=== PATIENT | female | born 1955 | race Caucasian/White ===

== ENCOUNTER 2018-11-22 08:21 | Inpatient (IN) | payer BC ==
--- NOTE | 2018-11-22 08:53 | EDM.PDOC ---
ED HPI GENERAL MEDICAL PROBLEM - General Chief Complaint: Chest Pain Stated Complaint: CHEST PAIN Time Seen by Provider: 11/22/18 08:40 Source of Information: Reports: Patient, EMS History Limitations: Reports: Physical Impairment (Patient has some expressive aphasia from her recent CVA) - History of Present Illness INITIAL COMMENTS - FREE TEXT/NARRATIVE: 63-year-old female sent in from her custodial with a cough, tachycardia and chest discomfort in the upper chest. According to the patient it worsened "this morning" but she can't put a time on the initiation of symptoms. No fevers or chills, she has right-sided weakness, facial droop and expressive aphasia from a recent CVA. She is in the custodial for rehabilitation. She's been feeling unwell for several weeks, over the last 5 days increased weakness and shortness of breath. No real pain other than her upper chest discomfort. Onset: Gradual Associated Symptoms: Reports: Chest Pain, Cough, Malaise, Shortness of Breath, Weakness. Denies: Fever/Chills, Other Anterior Chest Pain Score (Numeric/FACES): 4 - Related Data Allergies Allergy/AdvReac Type Severity Reaction Status Date / Time No Known Allergies Allergy Verified 11/22/18 08:41 Home Meds: Home Meds Albuterol Sulfate [Albuterol Sulfate Hfa] 2 puff IH Q4H PRN 11/22/18 [History] Amantadine [Symmetrel 50 MG/5 ML] 5 ml PO DAILY 11/22/18 [History] Ascorbate Calcium [Vitamin C] 1,000 mg PO DAILY 11/22/18 [History] Aspirin 325 mg PO DAILY 11/22/18 [History] Brimonidine Tartrate/Timolol [Combigan 0.2%-0.5% Eye Drops] 1 drop TOP DAILY 05/12 [History] Cholecalciferol (Vitamin D3) [Vitamin D3] 1,000 unit PO DAILY 11/22/18 [History] Clopidogrel Bisulfate [Clopidogrel] 1 tab PO DAILY 11/22/18 [History] Cyanocobalamin (Vitamin B-12) [Vitamin B-12] 1,000 mcg PO DAILY 11/22/18 [ History] Docusate Sodium [Stool Softener] 100 mg PO DAILY 11/22/18 [History] Dorzolamide HCl/Pf [Dorzolamide 2% Eye Drop] 1 drop TOP DAILY 11/22/18 [History] Escitalopram [Lexapro] 10 mg PO DAILY 11/22/18 [History] Famotidine 20 mg PO BID 11/22/18 [History] Insulin Aspart [NovoLOG] 0 unit SQ WITHMEALSANDBED 11/22/18 [History] Insulin Glarg,Human.Rec.Analog [Lantus Solostar] 25 unit SUBCUT DAILY 11/22/18 [ History] Lisinopril 10 mg PO DAILY 11/22/18 [History] Metoprolol Tartrate 1,000 mg PO BID 11/22/18 [History] Metoprolol Tartrate [Lopressor] 50 mg PO BID 11/22/18 [History] Triamcinolone Acetonide [Triamcinolone Acetonide 0.1% Crm] 1 applic TOP BID 05/12 [History] atorvaSTATin [Lipitor] 40 mg PO BEDTIME 11/22/18 [History] Past Medical History HEENT History: Reports: Impaired Vision Cardiovascular History: Reports: Hypertension, [place] Musculoskeletal History: Reports: Fracture Other Musculoskeletal History: wrist Neurological History: Reports: CVA Endocrine/Metabolic History: Reports: Diabetes, Type II - Infectious Disease History Infectious Disease History: Reports: Chicken Pox - Past Surgical History Cardiovascular Surgical History: Reports: Coronary Artery Bypass Social & Family History - Tobacco Use Smoking Status *Q: Former Smoker Years of Tobacco use: 45 Packs/Tins Daily: 1 Used Tobacco, but Quit: Yes Month/Year Tobacco Last Used: sep 20 2018 Second Hand Smoke Exposure: No - Caffeine Use Caffeine Use: Reports: Coffee, Soda, Tea - Recreational Drug Use Recreational Drug Use: No ED ROS GENERAL - Review of Systems Review Of Systems: See Below Constitutional: Reports: Malaise. Denies: Fever, Chills HEENT: Reports: Other (Persistent fluttering of the right eyelids since her stroke) Respiratory: Reports: Shortness of Breath, Cough Cardiovascular: Reports: Chest Pain (Pressure, substernal radiating into the left shoulder) GI/Abdominal: Reports: No Symptoms : Reports: No Symptoms Neurological: Reports: Weakness (Significant right-sided weakness since her stroke) ED EXAM, GENERAL - Physical Exam Exam: See Below Exam Limited By: No Limitations General Appearance: Alert, No Apparent Distress Eye Exam: Bilateral Eye: EOMI, Other (Periorbital weakness on the right side along with persistent fluttering of the eyelids) Throat/Mouth: Other (Right perioral facial weakness) Head: Atraumatic Neck: No: Carotid Bruit, Lymphadenopathy (R), Lymphadenopathy (L) Respiratory/Chest: No Respiratory Distress, Wheezing (A few scattered expiratory wheezes. Lung sounds are actually clear to the bases) Cardiovascular: Regular Rate, Rhythm, Tachycardia GI/Abdominal: Soft, Non-Tender Extremities: Other (Right arm and right leg are paralyzed, there is no lower extremity edema in either leg) Neurological: Alert, Oriented, Other (Mild expressive aphasia, new complete paralysis of the right side) Course - Vital Signs Last Recorded V/S: Last Vital Signs Temp 97.3 F 11/22/18 13:00 Pulse 106 H 11/22/18 11:41 Resp 14 11/22/18 13:00 BP 104/61 11/22/18 13:00 Pulse Ox 94 L 11/22/18 13:00 - Orders/Labs/Meds Orders: Active Orders 24 hr Category Date Time Status Insert Urinary Catheter [OM.PC] Q24H Care 11/22/18 09:00 Ordered Urinary Catheter Assessment [RC] ASDIRECTED Care 11/22/18 08:51 Active Chest w Cont [CT] Stat Exams 11/22/18 09:52 Taken CULTURE URINE [RM] Stat Lab 11/22/18 09:42 Received Sodium Chloride 0.9% [Saline Flush] Med 11/22/18 09:04 Active 10 ml FLUSH ASDIRECTED PRN Saline Lock Insert [OM.PC] Routine Oth 11/22/18 09:04 Ordered EKG 12 Lead [EK] Routine Ther 11/22/18 08:50 Stop Req Medication Orders Acetaminophen (Tylenol) 650 mg PO Q4H PRN PRN Reason: Pain (Mild 1-3)/fever Last Admin: 11/22/18 12:36 Dose: 650 mg Albuterol (Proventil Neb Soln) 2.5 mg NEB Q4H PRN PRN Reason: Shortness Of Breath/wheezing Amantadine HCl (Symmetrel 50 Mg/5 Ml) 50 mg PO DAILY [facility] Aspirin (Ecotrin) 325 mg PO DAILY [facility] Atorvastatin Calcium (Lipitor) 40 mg PO BEDTIME [facility] Azithromycin (Zithromax) 500 mg PO DAILY [facility] Brimonidine Tartrate (Alphagan 0.2% Ophth Soln) 0 ml EYELF DAILY [facility] Clopidogrel Bisulfate (Plavix) 75 mg PO DAILY [facility] Cyanocobalamin (Vitamin B12) 1,000 mcg PO DAILY [facility] Docusate Sodium (Colace) 100 mg PO DAILY [facility] Dorzolamide HCl (Trusopt 2% Ophth Soln) 0 ml EYELF DAILY [facility] Escitalopram Oxalate (Lexapro) 10 mg PO DAILY [facility] Famotidine (Pepcid) 20 mg PO BID [facility] Ceftriaxone Sodium 1 gm/ (Sodium Chloride) 50 mls @ 100 mls/hr IV Q24H [facility] Sodium Chloride (Normal Saline) 1,000 mls @ 125 mls/hr IV ASDIRECTED [facility] Last Admin: 11/22/18 12:34 Dose: 125 mls/hr Insulin Glargine (Lantus Solostar) 25 units SUBCUT DAILY [facility] Insulin Human Lispro (Humalog) 0 unit SUBCUT QIDACANDBED [facility]; Protocol Lorazepam (Ativan) 0.5 mg IVPUSH Q4H PRN PRN Reason: Nausea/Vomiting Magnesium Hydroxide (Milk Of Magnesia) 30 ml PO Q12H PRN PRN Reason: Constipation Metoprolol Tartrate (Lopressor) 50 mg PO BID [facility] Ondansetron HCl (Zofran Odt) 4 mg PO Q6H PRN PRN Reason: Nausea able to take PO Ondansetron HCl (Zofran) 4 mg IV Q6H PRN PRN Reason: Nausea/Vomiting Pneumococcal Polyvalent Vaccine (Pneumovax 23) 0.5 ml IM .ONCE ONE Stop: 11/24/18 09:01 Senna/Docusate Sodium (Senna Plus) 1 tab PO BID PRN PRN Reason: Constipation Sodium Chloride (Saline Flush) 10 ml FLUSH ASDIRECTED PRN PRN Reason: Keep Vein Open Last Admin: 11/22/18 09:00 Dose: 10 ml Timolol Maleate (Timoptic 0.5% Ophth Soln) 0 ml EYELF DAILY [facility] Labs: Laboratory Tests 11/22/18 11/22/18 11/22/18 Range/Units 08:50 08:59 09:11 WBC 14.2 H (4.5-11.0) K/uL RBC 4.54 (3.30-5.50) M/uL Hgb 13.7 (12.0-15.0) g/dL Hct 41.8 (36.0-48.0) % MCV 92 (80-98) fL MCH 30 (27-31) pg MCHC 33 (32-36) % Plt Count 210 (150-400) K/uL Neut % (Auto) 79 H (36-66) % Lymph % (Auto) 11 L (24-44) % [place] % (Auto) 8 H (2-6) % Eos % (Auto) 1 L (2-4) % Baso % (Auto) 0 (0-1) % Sodium 136 L (140-148) mmol/L Potassium 4.0 (3.6-5.2) mmol/L Chloride 98 L (100-108) mmol/L Carbon Dioxide 26 (21-32) mmol/L Anion Gap 16.0 H (5.0-14.0) mmol/L BUN 11 (7-18) mg/dL Creatinine 0.5 L (0.6-1.0) mg/dL Est Cr Clr Drug Dosing TNP Estimated GFR (MDRD) > 60 (>60) Glucose 223 H (74-106) mg/dL Lactic Acid (0.4-2.0) mmol/L Calcium 9.3 (8.5-10.1) mg/dL Total Bilirubin 1.3 H (0.2-1.0) mg/dL AST 16 (15-37) U/L ALT 18 (12-78) U/L Alkaline Phosphatase 107 (46-116) U/L Troponin I 0.042 (0.000-0.056) ng/mL Total Protein 7.1 (6.4-8.2) g/dL Albumin 2.9 L (3.4-5.0) g/dL Globulin 4.2 H (2.3-3.5) g/dL Albumin/Globulin Ratio 0.7 L (1.2-2.2) Urine Color Yellow Urine Appearance Cloudy Urine pH 6.0 (4.5-8.0) Ur Specific [place] 1.020 (1.008-1.030) Urine Protein Negative (NEGATIVE) mg/dL Urine Glucose (UA) Normal (NEGATIVE) mg/dL Urine Ketones Negative (NEGATIVE) mg/dL Urine Occult Blood Moderate (NEGATIVE) Urine Nitrite Positive H (NEGATIVE) Urine Bilirubin Negative (NEGATIVE) Urine Urobilinogen Normal (NORMAL) mg/dL Ur Leukocyte Esterase Moderate (NEGATIVE) Urine RBC 10-20 H (0-5) Urine WBC 20-30 H (0-5) Ur Epithelial Cells Few Amorphous Sediment Not seen Urine Bacteria Many Urine Mucus Not seen 11/22/18 Range/Units 10:25 WBC (4.5-11.0) K/uL RBC (3.30-5.50) M/uL Hgb (12.0-15.0) g/dL Hct (36.0-48.0) % MCV (80-98) fL MCH (27-31) pg MCHC (32-36) % Plt Count (150-400) K/uL Neut % (Auto) (36-66) % Lymph % (Auto) (24-44) % [place] % (Auto) (2-6) % Eos % (Auto) (2-4) % Baso % (Auto) (0-1) % Sodium (140-148) mmol/L Potassium (3.6-5.2) mmol/L Chloride (100-108) mmol/L Carbon Dioxide (21-32) mmol/L Anion Gap (5.0-14.0) mmol/L BUN (7-18) mg/dL Creatinine (0.6-1.0) mg/dL Est Cr Clr Drug Dosing Estimated GFR (MDRD) (>60) Glucose (74-106) mg/dL Lactic Acid 1.5 (0.4-2.0) mmol/L Calcium (8.5-10.1) mg/dL Total Bilirubin (0.2-1.0) mg/dL AST (15-37) U/L ALT (12-78) U/L Alkaline Phosphatase (46-116) U/L Troponin I (0.000-0.056) ng/mL Total Protein (6.4-8.2) g/dL Albumin (3.4-5.0) g/dL Globulin (2.3-3.5) g/dL Albumin/Globulin Ratio (1.2-2.2) Urine Color Urine Appearance Urine pH (4.5-8.0) Ur Specific [place] (1.008-1.030) Urine Protein (NEGATIVE) mg/dL Urine Glucose (UA) (NEGATIVE) mg/dL Urine Ketones (NEGATIVE) mg/dL Urine Occult Blood (NEGATIVE) Urine Nitrite (NEGATIVE) Urine Bilirubin (NEGATIVE) Urine Urobilinogen (NORMAL) mg/dL Ur Leukocyte Esterase (NEGATIVE) Urine RBC (0-5) Urine WBC (0-5) Ur Epithelial Cells Amorphous Sediment Urine Bacteria Urine Mucus Meds: Medications Generic Name Dose Route Start Last Admin Trade Name Freq PRN Reason Stop Dose Admin Acetaminophen 650 mg 11/22/18 12:22 11/22/18 12:36 Tylenol PO 650 mg Q4H PRN Administration Pain (Mild 1-3)/fever Albuterol 2.5 mg 11/22/18 12:22 Proventil Neb Soln NEB Q4H PRN Shortness Of Breath/wheezing Amantadine HCl 50 mg 11/23/18 09:00 Symmetrel 50 Mg/5 Ml PO DAILY [facility] Aspirin 325 mg 11/23/18 09:00 Ecotrin PO DAILY [facility] Atorvastatin Calcium 40 mg 11/22/18 21:00 Lipitor PO BEDTIME [facility] Azithromycin 500 mg 11/22/18 12:30 Zithromax PO DAILY [facility] Brimonidine Tartrate 0 ml 11/23/18 09:00 Alphagan 0.2% Ophth Soln EYELF DAILY [facility] Clopidogrel Bisulfate 75 mg 11/23/18 09:00 Plavix PO DAILY [facility] Cyanocobalamin 1,000 mcg 11/23/18 09:00 Vitamin B12 PO DAILY [facility] Docusate Sodium 100 mg 11/23/18 09:00 Colace PO DAILY [facility] Dorzolamide HCl 0 ml 11/23/18 09:00 Trusopt 2% Ophth Soln EYELF DAILY [facility] Escitalopram Oxalate 10 mg 11/23/18 09:00 Lexapro PO DAILY [facility] Famotidine 20 mg 11/22/18 21:00 Pepcid PO BID [facility] Ceftriaxone Sodium 1 gm/ 50 mls @ 100 mls/hr 11/23/18 10:00 Sodium Chloride IV Q24H [facility] Sodium Chloride 1,000 mls @ 125 mls/hr 11/22/18 12:22 11/22/18 12:34 Normal Saline IV 125 mls/hr ASDIRECTED [facility] Administration Insulin Glargine 25 units 11/23/18 09:00 Lantus Solostar SUBCUT DAILY [facility] Insulin Human Lispro 0 unit 11/22/18 17:00 Humalog SUBCUT QIDACANDBED [facility] Protocol Lorazepam 0.5 mg 11/22/18 12:22 Ativan IVPUSH Q4H PRN Nausea/Vomiting Magnesium Hydroxide 30 ml 11/22/18 12:22 Milk Of Magnesia PO Q12H PRN Constipation Metoprolol Tartrate 50 mg 11/22/18 21:00 Lopressor PO BID [facility] Ondansetron HCl 4 mg 11/22/18 12:22 Zofran Odt PO Q6H PRN Nausea able to take PO Ondansetron HCl 4 mg 11/22/18 12:22 Zofran IV Q6H PRN Nausea/Vomiting Pneumococcal Polyvalent Vaccine 0.5 ml 11/24/18 09:00 Pneumovax 23 IM 11/24/18 09:01 .ONCE ONE Senna/Docusate Sodium 1 tab 11/22/18 12:22 Senna Plus PO BID PRN Constipation Sodium Chloride 10 ml 11/22/18 09:04 11/22/18 09:00 Saline Flush FLUSH 10 ml ASDIRECTED PRN Administration Keep Vein Open Timolol Maleate 0 ml 11/23/18 09:00 Timoptic 0.5% Ophth Soln EYELF DAILY [facility] Discontinued Medications Generic Name Dose Route Start Last Admin Trade Name Freq PRN Reason Stop Dose Admin Ceftriaxone Sodium 1 gm/ 50 mls @ 100 mls/hr 11/22/18 09:52 11/22/18 10:06 Sodium Chloride IV 11/22/18 10:21 100 mls/hr ONETIME ONE Administration Sodium Chloride 75 mls @ 3 mls/sec 11/22/18 10:00 11/22/18 10:27 Normal Saline IV 3 mls/sec ASDIRECTED [facility] Administration Sodium Chloride 1,000 mls @ 1,000 mls/hr 11/22/18 10:45 11/22/18 11:02 Normal Saline IV 1,000 mls/hr ASDIRECTED [facility] Administration Iopamidol 100 ml 11/22/18 10:00 11/22/18 10:27 Isovue-300 (61%) IV 100 ml . DIRECTED [facility] Administration Sodium Chloride 10 ml 11/22/18 10:00 11/22/18 10:27 Saline Flush FLUSH 11/22/18 10:01 10 ml ONETIME ONE Administration - Re-Assessments/Exams Free Text/Narrative Re-Assessment/Exam: 11/22/18 09:27 An EKG was done which shows sinus tachycardia. The patient was very uncomfortable because she needs to urinate so a Sam was placed in a UA obtained. A CBC, CMP and troponin were also obtained and a portable chest x- ray. A small amount of linear atelectasis in the right base was seen but no pneumothorax, congestive heart failure or significant infiltrate. A pulmonary embolus became more likely with the apparent normal chest x-ray. On return of the labs if her kidney function is good we will progress with a CT of the chest to look for PE. 11/22/18 10:43 CBC reveals a white count of just over 14,000. Bilirubin is mildly elevated at 1.3, the rest of her LFTs are normal. UA is nitrite positive with bacteria and WBCs, culture initiated. CT of the chest was performed and Dr. Gamez of the hospitalist service was asked to consider admitting the patient for UTI and possible sepsis. 1 L of normal saline bolus was initiated and a lactic acid added to the laboratory regimen. 11/22/18 13:29 CT scan read negative for PE, so small right upper lobe infiltrates are present. Dr. Gamez is here to admit the patient for IV antibiotics and medical support. Departure - Departure Time of Disposition: 13:12 Disposition: Admitted As Inpatient 67 Clinical Impression: Right upper lobe pneumonia Qualifiers: Pneumonia type: due to unspecified organism Qualified Code(s): J18.1 - Lobar pneumonia, unspecified organism UTI (urinary tract infection) Qualifiers: Urinary tract infection type: site unspecified Hematuria presence: with hematuria Qualified Code(s): N39.0 - Urinary tract infection, site not specified - Discharge Information - My Orders Last 24 Hours: My Active Orders 11/22/18 08:50 EKG 12 Lead [EK] Routine 11/22/18 08:51 Urinary Catheter Assessment [RC] ASDIRECTED 11/22/18 09:00 Insert Urinary Catheter [OM.PC] Q24H 11/22/18 09:04 Sodium Chloride 0.9% [Saline Flush] 10 ml FLUSH ASDIRECTED PRN Saline Lock Insert [OM.PC] Routine 11/22/18 09:42 CULTURE URINE [RM] Stat 11/22/18 09:52 Chest w Cont [CT] Stat - Assessment/Plan Last 24 Hours: My Active Orders 11/22/18 08:50 EKG 12 Lead [EK] Routine 11/22/18 08:51 Urinary Catheter Assessment [RC] ASDIRECTED 11/22/18 09:00 Insert Urinary Catheter [OM.PC] Q24H 11/22/18 09:04 Sodium Chloride 0.9% [Saline Flush] 10 ml FLUSH ASDIRECTED PRN Saline Lock Insert [OM.PC] Routine 11/22/18 09:42 CULTURE URINE [RM] Stat 11/22/18 09:52 Chest w Cont [CT] Stat
[2018-11-22] MEDS ORDERED: Sodium Chloride 0.9% 10 ML Syringe FLUSH PRN (09:04)
--- NOTE | 2018-11-22 09:35 | CRLCR ---
INDICATION: Cough; tachycardia. COMPARISON: None. TECHNIQUE: Portable AP chest. FINDINGS: Normal size cardiac silhouette. Status post median sternotomy. Atelectatic changes lower lobe right lung. No acute pneumonic infiltrates or CHF. No pneumothorax or pleural effusion. Impression: 1. Atelectatic changes right lung base. 2. Status post median sternotomy. Dictated by Nahun Jha MD @ Nov 22 2018 9:32AM Signed by Dr. Nahun Jha @ Nov 22 2018 9:34AM
[2018-11-22] MEDS ORDERED: cefTRIAXone 1 GM in Sodium Chloride 0.9% 50 ML IV ONE (09:52)
[2018-11-22] MEDS ORDERED: Sodium Chloride 0.9% 75 ML IV SCH (10:00)
[2018-11-22] MEDS ORDERED: Iopamidol 612 MG/ML 100 ML Bottle IV SCH (10:00)
[2018-11-22] MEDS: Sodium Chloride 0.9% 10 ML Syringe FLUSH ONE ×2 (10:07→10:27)
[2018-11-22] MEDS ORDERED: Sodium Chloride 0.9% 1,000 ML IV SCH (10:45)
--- NOTE | 2018-11-22 12:11 | PCM.HP ---
H&P History of Present Illness - General Date of Service: 11/22/18 Admit Problem/Dx: Admission Diagnosis/Problem Admission Diagnosis/Problem Acute cystitis without hematuria Source of Information: Patient, Family, Provider History Limitations: Reports: No Limitations - History of Present Illness Initial Comments - Free Text/Narative: CC: I have an irritation HPI: Tiffany presented to the emergency room by ambulance from a local alf. History is somewhat limited because of her expressive aphasia following a recent stroke. Some additional history was gathered from emergency room personnel. She reports that she hasn't felt well for several days but cannot come up with any specific reason. She reports this morning she had what she calls an irritation in her chest. She will not say that she had pain. She does tell me that this irritation was worse with coughing and better with periods between coughing spells. She does describe producing some yellowish sputum. She feels mildly short of breath. She has not had any nausea, vomiting or abdominal pain. She has noticed that her urination has seemed differently over the past several days but does not endorse dysuria or frequency. She has not noticed a change in her bowel habits. This morning staff at the alf noted that she was tachycardic and hypoxic as well as somewhat lethargic and was sent to the emergency room for further evaluation. Workup in the emergency room revealed significant tachycardia with initial heart rate in the 150s. Blood pressure has been stable. She was hypoxic and did require supplemental oxygen. Urine sample strongly suggestive of infection. CT scan of the chest showed a very tiny area of possible pneumonia on the right side. She will be admitted to the hospital for management of sepsis in the setting of urinary tract infection and possibly a bronchitis. Anterior Chest Pain Score (Numeric/FACES): 4 - Related Data Allergies/Adverse Reactions: Allergies Allergy/AdvReac Type Severity Reaction Status Date / Time No Known Allergies Allergy Verified 11/22/18 08:41 Home Medications: Home Meds Albuterol Sulfate [Albuterol Sulfate Hfa] 2 puff IH Q4H PRN 11/22/18 [History] Amantadine [Symmetrel 50 MG/5 ML] 5 ml PO DAILY 11/22/18 [History] Ascorbate Calcium [Vitamin C] 1,000 mg PO DAILY 11/22/18 [History] Aspirin 325 mg PO DAILY 11/22/18 [History] Brimonidine Tartrate/Timolol [Combigan 0.2%-0.5% Eye Drops] 1 drop TOP DAILY 05/12 [History] Cholecalciferol (Vitamin D3) [Vitamin D3] 1,000 unit PO DAILY 11/22/18 [History] Clopidogrel Bisulfate [Clopidogrel] 1 tab PO DAILY 11/22/18 [History] Cyanocobalamin (Vitamin B-12) [Vitamin B-12] 1,000 mcg PO DAILY 11/22/18 [ History] Docusate Sodium [Stool Softener] 100 mg PO DAILY 11/22/18 [History] Dorzolamide HCl/Pf [Dorzolamide 2% Eye Drop] 1 drop TOP DAILY 11/22/18 [History] Escitalopram [Lexapro] 10 mg PO DAILY 11/22/18 [History] Famotidine 20 mg PO BID 11/22/18 [History] Insulin Aspart [NovoLOG] 0 unit SQ WITHMEALSANDBED 11/22/18 [History] Insulin Glarg,Human.Rec.Analog [Lantus Solostar] 25 unit SUBCUT DAILY 11/22/18 [ History] Lisinopril 10 mg PO DAILY 11/22/18 [History] Metoprolol Tartrate 1,000 mg PO BID 11/22/18 [History] Metoprolol Tartrate [Lopressor] 50 mg PO BID 11/22/18 [History] Triamcinolone Acetonide [Triamcinolone Acetonide 0.1% Crm] 1 applic TOP BID 05/12 [History] atorvaSTATin [Lipitor] 40 mg PO BEDTIME 11/22/18 [History] Past Medical History HEENT History: Reports: Impaired Vision Cardiovascular History: Reports: Hypertension, [place] Musculoskeletal History: Reports: Fracture Other Musculoskeletal History: wrist Neurological History: Reports: CVA Endocrine/Metabolic History: Reports: Diabetes, Type II - Infectious Disease History Infectious Disease History: Reports: Chicken Pox - Past Surgical History Cardiovascular Surgical History: Reports: Coronary Artery Bypass Social & Family History - Family History Cardiac: Denies: CAD - Tobacco Use Smoking Status *Q: Former Smoker Years of Tobacco use: 45 Packs/Tins Daily: 1 Used Tobacco, but Quit: Yes Month/Year Tobacco Last Used: sep 20 2018 Second Hand Smoke Exposure: No - Caffeine Use Caffeine Use: Reports: Coffee, Soda, Tea - Alcohol Use Alcohol Use History: No - Recreational Drug Use Recreational Drug Use: No H&P Review of Systems - Review of Systems: Review Of Systems: See Below Free Text/Narrative: A complete 12 point review of systems was obtained. Pertinent positives and negatives are noted in the history of present illness. All other systems were reviewed and were negative except as noted. Exam - Exam Exam: See Below - Vital Signs Vital Signs: Last Vital Signs Temp 36.2 C 11/22/18 09:41 Pulse 106 H 11/22/18 11:41 Resp 22 H 11/22/18 11:41 BP 125/77 11/22/18 11:41 Pulse Ox 93 L 11/22/18 11:41 Weight: 94.801 kg - Exam Quality Assessment: Supplemental Oxygen General: Alert, Oriented, Cooperative, Mild Distress HEENT: Conjunctiva Clear. No: Mucosa Moist & [place] (dry), Scleral Icterus Neck: Supple, Trachea Midline. No: Lymphadenopathy Lungs: Clear to Auscultation, Normal Respiratory Effort. No: Crackles, Wheezing Cardiovascular: Regular Rhythm, Tachycardia. No: Systolic Murmur GI/Abdominal Exam: Normal Bowel Sounds, Soft, Non-Tender, No Distention Extremities: No Pedal Edema. No: Increased Warmth Peripheral Pulses: 2+: Dorsalis Pedis (L), Dorsalis Pedis (R) Skin: Warm, Dry. No: Rash Neuro Extensive - Mental Status: Alert, Oriented x3, Nl Response to Commands Neuro Extensive - Motor, Sensory, Reflexes: Dysarthria (Mild), Facial Palsy (R) , Abnormal Motor (Very weak on the right side with arm and leg involved). No: Tremor Psychiatric: Alert, Normal Affect - Patient Data Lab Results Last 24 hrs: Laboratory Results - last 24 hr 11/22/18 11/22/18 11/22/18 Range/Units 08:50 08:59 09:11 WBC 14.2 H (4.5-11.0) K/uL RBC 4.54 (3.30-5.50) M/uL Hgb 13.7 (12.0-15.0) g/dL Hct 41.8 (36.0-48.0) % MCV 92 (80-98) fL MCH 30 (27-31) pg MCHC 33 (32-36) % Plt Count 210 (150-400) K/uL Neut % (Auto) 79 H (36-66) % Lymph % (Auto) 11 L (24-44) % [place] % (Auto) 8 H (2-6) % Eos % (Auto) 1 L (2-4) % Baso % (Auto) 0 (0-1) % Sodium 136 L (140-148) mmol/L Potassium 4.0 (3.6-5.2) mmol/L Chloride 98 L (100-108) mmol/L Carbon Dioxide 26 (21-32) mmol/L Anion Gap 16.0 H (5.0-14.0) mmol/L BUN 11 (7-18) mg/dL Creatinine 0.5 L (0.6-1.0) mg/dL Est Cr Clr Drug Dosing TNP Estimated GFR (MDRD) > 60 (>60) Glucose 223 H (74-106) mg/dL Lactic Acid (0.4-2.0) mmol/L Calcium 9.3 (8.5-10.1) mg/dL Total Bilirubin 1.3 H (0.2-1.0) mg/dL AST 16 (15-37) U/L ALT 18 (12-78) U/L Alkaline Phosphatase 107 (46-116) U/L Troponin I 0.042 (0.000-0.056) ng/mL Total Protein 7.1 (6.4-8.2) g/dL Albumin 2.9 L (3.4-5.0) g/dL Globulin 4.2 H (2.3-3.5) g/dL Albumin/Globulin Ratio 0.7 L (1.2-2.2) Urine Color Yellow Urine Appearance Cloudy Urine pH 6.0 (4.5-8.0) Ur Specific [place] 1.020 (1.008-1.030) Urine Protein Negative (NEGATIVE) mg/dL Urine Glucose (UA) Normal (NEGATIVE) mg/dL Urine Ketones Negative (NEGATIVE) mg/dL Urine Occult Blood Moderate (NEGATIVE) Urine Nitrite Positive H (NEGATIVE) Urine Bilirubin Negative (NEGATIVE) Urine Urobilinogen Normal (NORMAL) mg/dL Ur Leukocyte Esterase Moderate (NEGATIVE) Urine RBC 10-20 H (0-5) Urine WBC 20-30 H (0-5) Ur Epithelial Cells Few Amorphous Sediment Not seen Urine Bacteria Many Urine Mucus Not seen 11/22/18 Range/Units 10:25 WBC (4.5-11.0) K/uL RBC (3.30-5.50) M/uL Hgb (12.0-15.0) g/dL Hct (36.0-48.0) % MCV (80-98) fL MCH (27-31) pg MCHC (32-36) % Plt Count (150-400) K/uL Neut % (Auto) (36-66) % Lymph % (Auto) (24-44) % [place] % (Auto) (2-6) % Eos % (Auto) (2-4) % Baso % (Auto) (0-1) % Sodium (140-148) mmol/L Potassium (3.6-5.2) mmol/L Chloride (100-108) mmol/L Carbon Dioxide (21-32) mmol/L Anion Gap (5.0-14.0) mmol/L BUN (7-18) mg/dL Creatinine (0.6-1.0) mg/dL Est Cr Clr Drug Dosing Estimated GFR (MDRD) (>60) Glucose (74-106) mg/dL Lactic Acid 1.5 (0.4-2.0) mmol/L Calcium (8.5-10.1) mg/dL Total Bilirubin (0.2-1.0) mg/dL AST (15-37) U/L ALT (12-78) U/L Alkaline Phosphatase (46-116) U/L Troponin I (0.000-0.056) ng/mL Total Protein (6.4-8.2) g/dL Albumin (3.4-5.0) g/dL Globulin (2.3-3.5) g/dL Albumin/Globulin Ratio (1.2-2.2) Urine Color Urine Appearance Urine pH (4.5-8.0) Ur Specific [place] (1.008-1.030) Urine Protein (NEGATIVE) mg/dL Urine Glucose (UA) (NEGATIVE) mg/dL Urine Ketones (NEGATIVE) mg/dL Urine Occult Blood (NEGATIVE) Urine Nitrite (NEGATIVE) Urine Bilirubin (NEGATIVE) Urine Urobilinogen (NORMAL) mg/dL Ur Leukocyte Esterase (NEGATIVE) Urine RBC (0-5) Urine WBC (0-5) Ur Epithelial Cells Amorphous Sediment Urine Bacteria Urine Mucus Result Diagrams: 11/22/18 08:50 11/22/18 09:11 Imaging Impressions Last 24 hrs: Chest x-ray - images personally reviewed - previous sternotomy. No obvious mass , infiltrate or effusion CT scan of the chest - images personally reviewed - no evidence for pulmonary embolism though bolus of contrast suboptimally timed. There was a tiny area of possible infiltrate in the right midlung area. No effusions. *Q Meaningful Use (ADM) - VTE Risk Assess *Q Each Risk Factor Represents 1 Point: Obesity ( BMI > 25 kg/m2), Sepsis, Serious lung disease including pneumonia Total Score 1 Point Risk Factors: 3 Each Risk Factor Represents 2 Points: Age 60 - 74 Years Total Score 2 Point Risk Factors: 2 Each Risk Factor Represents 3 Points: None Total Score 3 Point Risk Factors: 0 Each Risk Factor Represents 5 Points: None Total Score 5 Point Risk Factors: 0 Venous Thromboembolism Risk Factor Score *Q: 5 - Problem List (1) Acute cystitis without hematuria SNOMED Code(s): 36721650 ICD Code: N30.00 - ACUTE CYSTITIS WITHOUT HEMATURIA Status: Acute Current Visit: Yes (2) Acute bronchitis SNOMED Code(s): 34831522 ICD Code: J20.9 - ACUTE BRONCHITIS, UNSPECIFIED Status: Acute Current Visit: Yes Qualifiers: Bronchitis organism: unspecified organism Qualified Code(s): J20.9 - Acute bronchitis, unspecified (3) Acute respiratory failure with hypoxia SNOMED Code(s): 57481628, 322700181 ICD Code: J96.01 - ACUTE RESPIRATORY FAILURE WITH HYPOXIA Status: Acute Current Visit: Yes (4) Sepsis SNOMED Code(s): 04785518 ICD Code: A41.9 - SEPSIS, UNSPECIFIED ORGANISM Status: Acute Current Visit: Yes Qualifiers: Sepsis type: sepsis due to unspecified organism Qualified Code(s): A41.9 - Sepsis, unspecified organism (5) Cerebrovascular disease SNOMED Code(s): 37402422 ICD Code: I67.9 - CEREBROVASCULAR DISEASE, UNSPECIFIED Status: Chronic Current Visit: Yes (6) Type 2 diabetes mellitus SNOMED Code(s): 81864763 ICD Code: E11.9 - TYPE 2 DIABETES MELLITUS WITHOUT COMPLICATIONS Status: Acute Current Visit: Yes Qualifiers: Diabetes mellitus usp insulin use: with terminal system operator use Diabetes mellitus complication status: with other specified complication Qualified Code (s): E11.69 - Type 2 diabetes mellitus with other specified complication; Z79.4 - senior living (current) use of insulin Problem List Initiated/Reviewed/Updated: Yes Orders Last 24hrs: Active Orders 24 hr Category Date Time Status Patient Status Manage Transfer [TRANSFER] Routine ADT 11/22/18 12:01 Ordered EKG Documentation Completion [RC] ASDIRECTED Care 11/22/18 08:51 Active Insert Urinary Catheter [OM.PC] Q24H Care 11/22/18 09:00 Ordered Oxygen Therapy, ED [RC] ASDIRECTED Care 11/22/18 09:04 Active Urinary Catheter Assessment [RC] ASDIRECTED Care 11/22/18 08:51 Active Chest w Cont [CT] Stat Exams 11/22/18 09:52 Taken CULTURE URINE [RM] Stat Lab 11/22/18 09:42 Received Iopamidol [Isovue-300 (61%)] Med 11/22/18 10:00 Active 100 ml IV . DIRECTED Sodium Chloride 0.9% [Normal Saline] 1,000 ml Med 11/22/18 10:45 Active IV ASDIRECTED Sodium Chloride 0.9% [Normal Saline] 75 ml Med 11/22/18 10:00 Active IV ASDIRECTED Sodium Chloride 0.9% [Saline Flush] Med 11/22/18 09:04 Active 10 ml FLUSH ASDIRECTED PRN Saline Lock Insert [OM.PC] Routine Oth 11/22/18 09:04 Ordered Resuscitation Status Routine Resus Stat 11/22/18 12:04 Ordered EKG 12 Lead [EK] Routine Ther 11/22/18 08:50 Ordered Medication Orders Sodium Chloride (Normal Saline) 75 mls @ 3 mls/sec IV ASDIRECTED DANNA Last Admin: 11/22/18 10:27 Dose: 3 mls/sec Sodium Chloride (Normal Saline) 1,000 mls @ 1,000 mls/hr IV ASDIRECTED DANNA Last Admin: 11/22/18 11:02 Dose: 1,000 mls/hr Iopamidol (Isovue-300 (61%)) 100 ml IV . DIRECTED DANNA Last Admin: 11/22/18 10:27 Dose: 100 ml Sodium Chloride (Saline Flush) 10 ml FLUSH ASDIRECTED PRN PRN Reason: Keep Vein Open Last Admin: 11/22/18 09:00 Dose: 10 ml Assessment/Plan Comment:: ASSESSMENT AND PLAN - Acute cystitis without hematuria - infection complicated by sepsis with significant tachycardia. Lactic acid level was normal surprisingly. No recent antibiotics. -Ceftriaxone -IV fluids -Follow-up culture Acute bronchitis - complicated by acute respiratory failure with hypoxia. CT did show possible very tiny area of pneumonia but I doubt this is what's causing her respiratory difficulty. Patient describes significant increase in sputum more consistent with bronchitis. She is requiring supplemental oxygen. -Ceftriaxone and azithromycin -Supplement oxygen as needed Cerebrovascular disease - recent significant event with right-sided hemiplegia, dysarthria and mild dysphasia. She is currently at the alf rehabbing from her stroke. -Continue medical management Type 2 diabetes mellitus - she is insulin-dependent. -Continue long-acting insulin and sliding-scale insulin Maintenance issues - - DVT prophylaxis - mechanical along with dual antiplatelet therapy - GI prophylaxis - twice daily H2 kailey - Nutrition - diabetic diet - Sam catheter - placed in the emergency room for strict intake and output monitoring with a critical patient CODE STATUS - full code Admission justification - This patient will be admitted for inpatient services and is medically appropriate meeting medical necessity for inpatient admission as outlined in my documentation. I reasonably expect the patient will require inpatient services that span a period time over 2 midnights. I reasonably expect this patient to be discharged or transferred within 96 hours after admission to the [facility]. Disposition - I would anticipate discharge back to the alf after the hospital stay Primary care physician - Dr. Mirta Gamez M.D.
[2018-11-22] MEDS ORDERED: Ondansetron 4 MG/2 ML SDV IV PRN (12:22)
[2018-11-22] MEDS ORDERED: Acetaminophen 325 MG Tab PO PRN (12:22)
[2018-11-22] MEDS ORDERED: LORazepam 2 MG/ML SDV IVPUSH PRN (12:22)
[2018-11-22] MEDS ORDERED: Ondansetron 4 MG Tab.DIS PO PRN (12:22)
[2018-11-22] MEDS ORDERED: Magnesium Hydroxide 400 MG/5 ML Susp 30 ML Cup PO PRN (12:22)
[2018-11-22] MEDS ORDERED: Albuterol 0.083% 2.5 MG/3 ML Neb Soln NEB PRN (12:22)
[2018-11-22] MEDS: Sodium Chloride 0.9% 1,000 ML IV SCH ×2 (12:34→20:15)
[2018-11-22] MEDS: Azithromycin 250 MG Tab PO SCH (14:56)
[2018-11-22] MEDS: Codeine/guaiFENesin 100mg-10 MG/5 ML Syrup 10 ML Cup PO PRN ×2 (15:50→20:02)
[2018-11-22] MEDS: Insulin Lispro 100 Unit/ML 3 ML KwikPen SUBCUT SCH ×2 (17:05→19:57)
[2018-11-22] MEDS: Metoprolol Tartrate 50 MG Tab PO SCH (21:03)
[2018-11-22] MEDS: atorvaSTATin 20 MG Tab PO SCH (21:03)
[2018-11-22] MEDS: Famotidine 20 MG Tab PO SCH (21:04)
[2018-11-23] MEDS: Codeine/guaiFENesin 100mg-10 MG/5 ML Syrup 10 ML Cup PO PRN ×2 (00:08→07:20)
[2018-11-23] MEDS: Sodium Chloride 0.9% 1,000 ML IV SCH (04:09)
[2018-11-23] MEDS: Insulin Lispro 100 Unit/ML 3 ML KwikPen SUBCUT SCH ×4 (08:04→21:07)
[2018-11-23] MEDS: Insulin Glargine,Human Rec. Analog 100 Units/ML 3 ML Pen SUBCUT SCH (08:05)
[2018-11-23] MEDS: AMANTADINE PO SCH (08:05)
[2018-11-23] MEDS: Cyanocobalamin (Vitamin B12) 1,000 MCG Tab PO SCH (08:06)
[2018-11-23] MEDS: Escitalopram 10 MG Tab PO SCH (08:06)
[2018-11-23] MEDS: Famotidine 20 MG Tab PO SCH ×2 (08:06→21:08)
[2018-11-23] MEDS: Clopidogrel 75 MG Tab PO SCH (08:06)
[2018-11-23] MEDS: Aspirin 325 MG Tab.EC PO SCH (08:06)
[2018-11-23] MEDS: Azithromycin 250 MG Tab PO SCH (08:06)
[2018-11-23] MEDS: Metoprolol Tartrate 50 MG Tab PO SCH ×2 (08:06→21:09)
[2018-11-23] MEDS: Docusate Sodium 100 MG Cap PO SCH (08:06)
[2018-11-23] MEDS: Timolol Maleate 0.5% Ophth Soln 5 ML Bottle EYELF SCH (08:06)
[2018-11-23] MEDS: Brimonidine 0.2% Ophth Soln 5 ML Bottle EYELF SCH (08:07)
[2018-11-23] MEDS: Dorzolamide 2% Ophth Soln 10 ML Bottle EYELF SCH (08:07)
[2018-11-23] MEDS ORDERED: Benzonatate 100 MG Cap PO PRN (09:24)
--- NOTE | 2018-11-23 09:25 | PCM.PN ---
- General Info Date of Service: 11/23/18 Subjective Update: There were no acute events overnight. The patient is feeling much better today. Still coughing but less intense. Was able to get a little bit asleep in between coughing spells. She feels less short of breath today. Energy and appetite are better today. Still requiring supplemental oxygen. No complaints of abdominal pain. No fevers. Functional Status: Reports: Pain Controlled, Tolerating Diet - Review of Systems General: Reports: Weakness Pulmonary: Reports: Cough - Patient Data Vitals - Most Recent: Last Vital Signs Temp 35.9 C 11/23/18 08:00 Pulse 90 11/23/18 08:06 Resp 17 11/23/18 08:00 BP 146/62 H 11/23/18 08:06 Pulse Ox 92 L 11/23/18 08:00 Weight - Most Recent: 94.801 kg I&O - Last 24 Hours: Intake & Output 11/22/18 11/23/18 11/23/18 22:59 06:59 14:59 Intake Total 595 1588 Output Total 750 850 Balance -155 738 Lab Results Last 24 Hours: Laboratory Results - last 24 hr 11/22/18 11/22/18 11/23/18 Range/Units 09:11 10:25 04:20 WBC (4.5-11.0) K/uL RBC (3.30-5.50) M/uL Hgb (12.0-15.0) g/dL Hct (36.0-48.0) % MCV (80-98) fL MCH (27-31) pg MCHC (32-36) % Plt Count (150-400) K/uL Sodium 136 L 138 L (140-148) mmol/L Potassium 4.0 4.3 (3.6-5.2) mmol/L Chloride 98 L 104 (100-108) mmol/L Carbon Dioxide 26 27 (21-32) mmol/L Anion Gap 16.0 H 11.3 (5.0-14.0) mmol/L BUN 11 7 (7-18) mg/dL Creatinine 0.5 L 0.5 L (0.6-1.0) mg/dL Est Cr Clr Drug Dosing TNP 109.81 Estimated GFR (MDRD) > 60 > 60 (>60) Glucose 223 H 213 H (74-106) mg/dL Lactic Acid 1.5 (0.4-2.0) mmol/L Calcium 9.3 8.4 L (8.5-10.1) mg/dL Total Bilirubin 1.3 H (0.2-1.0) mg/dL AST 16 (15-37) U/L ALT 18 (12-78) U/L Alkaline Phosphatase 107 (46-116) U/L Troponin I 0.042 (0.000-0.056) ng/mL Total Protein 7.1 (6.4-8.2) g/dL Albumin 2.9 L (3.4-5.0) g/dL Globulin 4.2 H (2.3-3.5) g/dL Albumin/Globulin Ratio 0.7 L (1.2-2.2) 11/23/18 Range/Units 04:26 WBC 10.8 (4.5-11.0) K/uL RBC 4.03 (3.30-5.50) M/uL Hgb 12.1 (12.0-15.0) g/dL Hct 38.1 (36.0-48.0) % MCV 95 (80-98) fL MCH 30 (27-31) pg MCHC 32 (32-36) % Plt Count 204 (150-400) K/uL Sodium (140-148) mmol/L Potassium (3.6-5.2) mmol/L Chloride (100-108) mmol/L Carbon Dioxide (21-32) mmol/L Anion Gap (5.0-14.0) mmol/L BUN (7-18) mg/dL Creatinine (0.6-1.0) mg/dL Est Cr Clr Drug Dosing Estimated GFR (MDRD) (>60) Glucose (74-106) mg/dL Lactic Acid (0.4-2.0) mmol/L Calcium (8.5-10.1) mg/dL Total Bilirubin (0.2-1.0) mg/dL AST (15-37) U/L ALT (12-78) U/L Alkaline Phosphatase (46-116) U/L Troponin I (0.000-0.056) ng/mL Total Protein (6.4-8.2) g/dL Albumin (3.4-5.0) g/dL Globulin (2.3-3.5) g/dL Albumin/Globulin Ratio (1.2-2.2) Ac Results Last 24 Hours: Microbiology 11/22/18 09:42 Urine Culture - Preliminary Urine, Quick Cath (In-Out) Med Orders - Current: Current Medications Acetaminophen (Tylenol) 650 mg PO Q4H PRN PRN Reason: Pain (Mild 1-3)/fever Last Admin: 11/22/18 12:36 Dose: 650 mg Albuterol (Proventil Neb Soln) 2.5 mg NEB Q4H PRN PRN Reason: Shortness Of Breath/wheezing Amantadine HCl (Symmetrel 50 Mg/5 Ml) 50 mg PO DAILY [facility] Last Admin: 11/23/18 08:05 Dose: 50 mg Aspirin (Ecotrin) 325 mg PO DAILY [facility] Last Admin: 11/23/18 08:06 Dose: 325 mg Atorvastatin Calcium (Lipitor) 40 mg PO BEDTIME [facility] Last Admin: 11/22/18 21:03 Dose: 40 mg Azithromycin (Zithromax) 500 mg PO DAILY [facility] Last Admin: 11/23/18 08:06 Dose: 500 mg Brimonidine Tartrate (Alphagan 0.2% Ophth Soln) 0 ml EYELF DAILY [facility] Last Admin: 11/23/18 08:07 Dose: 1 drop Clopidogrel Bisulfate (Plavix) 75 mg PO DAILY [facility] Last Admin: 11/23/18 08:06 Dose: 75 mg Cyanocobalamin (Vitamin B12) 1,000 mcg PO DAILY [facility] Last Admin: 11/23/18 08:06 Dose: 1,000 mcg Docusate Sodium (Colace) 100 mg PO DAILY [facility] Last Admin: 11/23/18 08:06 Dose: 100 mg Dorzolamide HCl (Trusopt 2% Ophth Soln) 0 ml EYELF DAILY [facility] Last Admin: 11/23/18 08:07 Dose: 1 drop Escitalopram Oxalate (Lexapro) 10 mg PO DAILY [facility] Last Admin: 11/23/18 08:06 Dose: 10 mg Famotidine (Pepcid) 20 mg PO BID [facility] Last Admin: 11/23/18 08:06 Dose: 20 mg Guaifenesin/Codeine Phosphate (Robitussin Ac) 10 ml PO Q4H PRN PRN Reason: Cough Last Admin: 11/23/18 07:20 Dose: 10 ml Ceftriaxone Sodium 1 gm/ (Sodium Chloride) 50 mls @ 100 mls/hr IV Q24H [facility] Insulin Glargine (Lantus Solostar) 25 units SUBCUT DAILY [facility] Last Admin: 11/23/18 08:05 Dose: 25 units Insulin Human Lispro (Humalog) 0 unit SUBCUT QIDACANDBED [facility]; Protocol Last Admin: 11/23/18 08:04 Dose: 2 units Lorazepam (Ativan) 0.5 mg IVPUSH Q4H PRN PRN Reason: Nausea/Vomiting Magnesium Hydroxide (Milk Of Magnesia) 30 ml PO Q12H PRN PRN Reason: Constipation Metoprolol Tartrate (Lopressor) 50 mg PO BID [facility] Last Admin: 11/23/18 08:06 Dose: 50 mg Ondansetron HCl (Zofran Odt) 4 mg PO Q6H PRN PRN Reason: Nausea able to take PO Ondansetron HCl (Zofran) 4 mg IV Q6H PRN PRN Reason: Nausea/Vomiting Pneumococcal Polyvalent Vaccine (Pneumovax 23) 0.5 ml IM .ONCE ONE Stop: 11/24/18 09:01 Senna/Docusate Sodium (Senna Plus) 1 tab PO BID PRN PRN Reason: Constipation Sodium Chloride (Saline Flush) 10 ml FLUSH ASDIRECTED PRN PRN Reason: Keep Vein Open Last Admin: 11/22/18 09:00 Dose: 10 ml Timolol Maleate (Timoptic 0.5% Ophth Soln) 0 ml EYELF DAILY [facility] Last Admin: 11/23/18 08:06 Dose: 1 drop Discontinued Medications Ceftriaxone Sodium 1 gm/ (Sodium Chloride) 50 mls @ 100 mls/hr IV ONETIME ONE Stop: 11/22/18 10:21 Last Admin: 11/22/18 10:06 Dose: 100 mls/hr Sodium Chloride (Normal Saline) 75 mls @ 3 mls/sec IV ASDIRECTED [facility] Last Admin: 11/22/18 10:27 Dose: 3 mls/sec Sodium Chloride (Normal Saline) 1,000 mls @ 1,000 mls/hr IV ASDIRECTED [facility] Last Admin: 11/22/18 11:02 Dose: 1,000 mls/hr Sodium Chloride (Normal Saline) 1,000 mls @ 125 mls/hr IV ASDIRECTED [facility] Last Admin: 11/23/18 04:09 Dose: 125 mls/hr Iopamidol (Isovue-300 (61%)) 100 ml IV . DIRECTED [facility] Last Admin: 11/22/18 10:27 Dose: 100 ml Sodium Chloride (Saline Flush) 10 ml FLUSH ONETIME ONE Stop: 11/22/18 10:01 Last Admin: 11/22/18 10:27 Dose: 10 ml - Exam Quality Assessment: Supplemental Oxygen General: Alert, Oriented, Cooperative, No Acute Distress Lungs: Clear to Auscultation, Normal Respiratory Effort Cardiovascular: Regular Rate, Regular Rhythm GI/Abdominal Exam: Soft, No Distention Extremities: No Pedal Edema Psy/Mental Status: Alert, Normal Affect - Problem List & Annotations (1) Acute cystitis without hematuria SNOMED Code(s): 82021132 Code(s): N30.00 - ACUTE CYSTITIS WITHOUT HEMATURIA Status: Acute Current Visit: Yes (2) Acute bronchitis SNOMED Code(s): 01470919 Code(s): J20.9 - ACUTE BRONCHITIS, UNSPECIFIED Status: Acute Current Visit: Yes Qualifiers: Bronchitis organism: unspecified organism Qualified Code(s): J20.9 - Acute bronchitis, unspecified (3) Acute respiratory failure with hypoxia SNOMED Code(s): 65973797, 300214694 Code(s): J96.01 - ACUTE RESPIRATORY FAILURE WITH HYPOXIA Status: Acute Current Visit: Yes (4) Sepsis SNOMED Code(s): 35210129 Code(s): A41.9 - SEPSIS, UNSPECIFIED ORGANISM Status: Acute Current Visit : Yes Qualifiers: Sepsis type: sepsis due to unspecified organism Sepsis acute organ dysfunction status: with acute organ dysfunction Severe sepsis acute organ dysfunction type: acute respiratory failure Acute respiratory failure type: with hypoxia Severe sepsis shock status: without septic shock Qualified Code (s): A41.9 - Sepsis, unspecified organism; R65.20 - Severe sepsis without septic shock; J96.01 - Acute respiratory failure with hypoxia (5) Cerebrovascular disease SNOMED Code(s): 28600345 Code(s): I67.9 - CEREBROVASCULAR DISEASE, UNSPECIFIED Status: Chronic Current Visit: Yes (6) Type 2 diabetes mellitus SNOMED Code(s): 12597894 Code(s): E11.9 - TYPE 2 DIABETES MELLITUS WITHOUT COMPLICATIONS Status: Chronic Current Visit: Yes Qualifiers: Diabetes mellitus rodent exterminator insulin use: with rodent exterminator use Diabetes mellitus complication status: with other specified complication Qualified Code (s): E11.69 - Type 2 diabetes mellitus with other specified complication; Z79.4 - termite treater (current) use of insulin - Problem List Review Problem List Initiated/Reviewed/Updated: Yes - My Orders Last 24 Hours: My Active Orders 11/22/18 12:04 Resuscitation Status Routine 11/22/18 12:22 Patient Status [ADT] Routine Blood Glucose Check, Bedside [RC] QIDACANDBED Communication Order [RC] PRN Communication Order [RC] PRN Diabetes Education [RC] Click to Edit Intake and Output [RC] QSHIFT Notify Provider Vital Signs [RC] ASDIRECTED Notify Provider [RC] PRN Oxygen Therapy [RC] PRN RT Aerosol Therapy [RC] ASDIRECTED Up With Assistance [RC] ASDIRECTED VTE/DVT Education [RC] Per Unit Routine Vital Signs [RC] Q4H Acetaminophen [Tylenol] 650 mg PO Q4H PRN Albuterol [Proventil Neb Soln] 2.5 mg NEB Q4H PRN Docusate Sodium/Sennosides [Senna Plus] 1 tab PO BID PRN LORazepam [Ativan] 0.5 mg IVPUSH Q4H PRN Magnesium Hydroxide [Milk of Magnesia] 30 ml PO Q12H PRN Ondansetron [Zofran ODT] 4 mg PO Q6H PRN Ondansetron [Zofran] 4 mg IV Q6H PRN Antiembolic Hose [OM.PC] Routine 11/22/18 12:30 Azithromycin [Zithromax] 500 mg PO DAILY 11/22/18 15:20 Codeine/guaiFENesin [Robitussin AC] 10 ml PO Q4H PRN 11/22/18 17:00 Insulin Lispro [HumaLOG] See Protocol SUBCUT QIDACANDBED 11/22/18 21:00 Famotidine [Pepcid] 20 mg PO BID Metoprolol Tartrate [Lopressor] 50 mg PO BID atorvaSTATin [Lipitor] 40 mg PO BEDTIME 11/22/18 Lunch Consistent Carbohydrate Diet [DIET] 11/23/18 09:00 Amantadine [Symmetrel 50 MG/5 ML] 50 mg PO DAILY Aspirin [Ecotrin] 325 mg PO DAILY Brimonidine [Alphagan 0.2% Ophth Soln] 0 ml EYELF DAILY Clopidogrel [Plavix] 75 mg PO DAILY Cyanocobalamin (Vitamin B12) [Vitamin B12] 1,000 mcg PO DAILY Docusate Sodium [Colace] 100 mg PO DAILY Dorzolamide [Trusopt 2% Ophth Soln] 0 ml EYELF DAILY Escitalopram [Lexapro] 10 mg PO DAILY Insulin Glarg,Human.Rec.Analog [LantUS Solostar] 25 units SUBCUT DAILY Timolol Maleate [Timoptic 0.5% Ophth Soln] 0 ml EYELF DAILY 11/23/18 09:22 Convert IV to Saline Lock [OM.PC] Routine 11/23/18 09:23 Transfer Patient (Change bed) [ADT] Routine Discontinue Telemetry Monitoring [Cardiac Monitoring Discontinue] [RC] Click to Edit 11/23/18 09:24 Benzonatate [Tessalon Perles] 100 mg PO TID PRN 11/23/18 10:00 cefTRIAXone [Rocephin] 1 gm Sodium Chloride 0.9% [Normal Saline] 50 ml IV Q24H 11/24/18 05:00 BASIC METABOLIC PANEL,BMP [CHEM] Timed 11/24/18 09:00 Pneumococcal Polyvalent-23 Vac [Pneumovax 23] 0.5 ml IM .ONCE ONE - Plan Plan:: ASSESSMENT AND PLAN - Acute cystitis without hematuria - sepsis has resolved. Urine culture growing a gram-negative rods with identification pending. -Ceftriaxone -Saline lock IV -Follow-up culture Acute bronchitis - complicated by acute respiratory failure with hypoxia. Still hypoxic but clinically looks much better today. -Ceftriaxone and azithromycin -Supplement oxygen as needed Cerebrovascular disease - recent significant event with right-sided hemiplegia, dysarthria and mild dysphasia. She is currently at the [facility] re[facility]. -Continue medical management Type 2 diabetes mellitus - she is insulin-dependent. Blood sugars acceptable at this time. -Continue long-acting insulin and sliding-scale insulin Maintenance issues - - DVT prophylaxis - mechanical along with dual antiplatelet therapy - GI prophylaxis - twice daily H2 kailey - Nutrition - diabetic diet - Sam catheter - placed in the emergency room for strict intake and output monitoring with a critical patient, I anticipate this will be removed in the morning Disposition - I would anticipate [facility] back to the [facility] after the hospital stay Primary care physician - Dr. Mirta Gamez M.D.
[2018-11-23] MEDS: cefTRIAXone 1 GM in Sodium Chloride 0.9% 50 ML IV SCH (09:33)
[2018-11-23] MEDS: atorvaSTATin 20 MG Tab PO SCH (21:09)
[2018-11-24] MEDS ORDERED: Pneumococcal Polyvalent-23 Vaccine 0.5 ML SDV IM ONE (09:00)
[2018-11-24] MEDS: Escitalopram 10 MG Tab PO SCH (09:17)
[2018-11-24] MEDS: Aspirin 325 MG Tab.EC PO SCH (09:17)
[2018-11-24] MEDS: Azithromycin 250 MG Tab PO SCH (09:17)
[2018-11-24] MEDS: Docusate Sodium 100 MG Cap PO SCH (09:20)
[2018-11-24] MEDS: Cyanocobalamin (Vitamin B12) 1,000 MCG Tab PO SCH (09:20)
[2018-11-24] MEDS: AMANTADINE PO SCH (09:21)
[2018-11-24] MEDS: Clopidogrel 75 MG Tab PO SCH (09:21)
[2018-11-24] MEDS: Brimonidine 0.2% Ophth Soln 5 ML Bottle EYELF SCH (09:23)
[2018-11-24] MEDS: Famotidine 20 MG Tab PO SCH ×2 (09:23→21:45)
[2018-11-24] MEDS: Timolol Maleate 0.5% Ophth Soln 5 ML Bottle EYELF SCH (09:29)
[2018-11-24] MEDS: Dorzolamide 2% Ophth Soln 10 ML Bottle EYELF SCH (09:30)
[2018-11-24] MEDS: Metoprolol Tartrate 50 MG Tab PO SCH ×2 (09:36→21:45)
[2018-11-24] MEDS: Insulin Glargine,Human Rec. Analog 100 Units/ML 3 ML Pen SUBCUT SCH (09:36)
[2018-11-24] MEDS: Insulin Lispro 100 Unit/ML 3 ML KwikPen SUBCUT SCH ×4 (09:38→21:42)
[2018-11-24] MEDS: cefTRIAXone 1 GM in Sodium Chloride 0.9% 50 ML IV SCH (11:32)
--- NOTE | 2018-11-24 11:56 | PCM.PN ---
- General Info Date of Service: 11/24/18 Subjective Update: There were no acute events overnight. Patient still has a mild cough but this is improving. She is off supplemental oxygen this morning. She remains very weak but is similar to the level of weakness present prior to admission. Urine culture grew out a Shigella species. No urinary symptoms. No abdominal pain or diarrhea. Functional Status: Reports: Pain Controlled, Tolerating Diet - Review of Systems General: Reports: Weakness Pulmonary: Reports: Cough - Patient Data Vitals - Most Recent: Last Vital Signs Temp 36.2 C 11/24/18 09:32 Pulse 90 11/24/18 09:36 Resp 18 11/24/18 09:32 BP 141/81 H 11/24/18 09:36 Pulse Ox 88 L 11/24/18 09:32 Weight - Most Recent: 94.801 kg I&O - Last 24 Hours: Intake & Output 11/23/18 11/24/18 11/24/18 22:59 06:59 14:59 Intake Total 530 Output Total 300 450 Balance -300 -450 530 Lab Results Last 24 Hours: Laboratory Results - last 24 hr 11/24/18 Range/Units 05:00 Sodium 141 (140-148) mmol/L Potassium 4.0 (3.6-5.2) mmol/L Chloride 105 (100-108) mmol/L Carbon Dioxide 27 (21-32) mmol/L Anion Gap 9.5 (5.0-14.0) mmol/L BUN 10 (7-18) mg/dL Creatinine 0.5 L (0.6-1.0) mg/dL Est Cr Clr Drug Dosing 109.81 mL/min Estimated GFR (MDRD) > 60 (>60) Glucose 174 H (74-106) mg/dL Calcium 8.5 (8.5-10.1) mg/dL Ac Results Last 24 Hours: Microbiology 11/22/18 09:42 Urine Culture - Final Urine, Quick Cath (In-Out) Shigella Sonnei Med Orders - Current: Current Medications Acetaminophen (Tylenol) 650 mg PO Q4H PRN PRN Reason: Pain (Mild 1-3)/fever Last Admin: 11/22/18 12:36 Dose: 650 mg Albuterol (Proventil Neb Soln) 2.5 mg NEB Q4H PRN PRN Reason: Shortness Of Breath/wheezing Last Admin: 11/23/18 21:14 Dose: 2.5 mg Amantadine HCl (Symmetrel 50 Mg/5 Ml) 50 mg PO DAILY [facility] Last Admin: 11/24/18 09:21 Dose: 50 mg Aspirin (Ecotrin) 325 mg PO DAILY [facility] Last Admin: 11/24/18 09:17 Dose: 325 mg Atorvastatin Calcium (Lipitor) 40 mg PO BEDTIME [facility] Last Admin: 11/23/18 21:09 Dose: 40 mg Azithromycin (Zithromax) 500 mg PO DAILY [facility] Last Admin: 11/24/18 09:17 Dose: 500 mg Benzonatate (Tessalon Perles) 100 mg PO TID PRN PRN Reason: Cough Brimonidine Tartrate (Alphagan 0.2% Ophth Soln) 0 ml EYELF DAILY [facility] Last Admin: 11/24/18 09:23 Dose: 1 drop Cefdinir (Omnicef) 300 mg PO BID [facility] Clopidogrel Bisulfate (Plavix) 75 mg PO DAILY [facility] Last Admin: 11/24/18 09:21 Dose: 75 mg Cyanocobalamin (Vitamin B12) 1,000 mcg PO DAILY [facility] Last Admin: 11/24/18 09:20 Dose: 1,000 mcg Docusate Sodium (Colace) 100 mg PO DAILY [facility] Last Admin: 11/24/18 09:20 Dose: 100 mg Dorzolamide HCl (Trusopt 2% Ophth Soln) 0 ml EYELF DAILY [facility] Last Admin: 11/24/18 09:30 Dose: 1 drop Escitalopram Oxalate (Lexapro) 10 mg PO DAILY [facility] Last Admin: 11/24/18 09:17 Dose: 10 mg Famotidine (Pepcid) 20 mg PO BID [facility] Last Admin: 11/24/18 09:23 Dose: 20 mg Guaifenesin/Codeine Phosphate (Robitussin Ac) 10 ml PO Q4H PRN PRN Reason: Cough Last Admin: 11/23/18 07:20 Dose: 10 ml Insulin Glargine (Lantus Solostar) 25 units SUBCUT DAILY [facility] Last Admin: 11/24/18 09:36 Dose: 25 units Insulin Human Lispro (Humalog) 0 unit SUBCUT QIDACANDBED [facility]; Protocol Last Admin: 11/24/18 09:38 Dose: 2 units Lorazepam (Ativan) 0.5 mg IVPUSH Q4H PRN PRN Reason: Nausea/Vomiting Magnesium Hydroxide (Milk Of Magnesia) 30 ml PO Q12H PRN PRN Reason: Constipation Metoprolol Tartrate (Lopressor) 50 mg PO BID [facility] Last Admin: 11/24/18 09:36 Dose: 50 mg Ondansetron HCl (Zofran Odt) 4 mg PO Q6H PRN PRN Reason: Nausea able to take PO Ondansetron HCl (Zofran) 4 mg IV Q6H PRN PRN Reason: Nausea/Vomiting Senna/Docusate Sodium (Senna Plus) 1 tab PO BID PRN PRN Reason: Constipation Sodium Chloride (Saline Flush) 10 ml FLUSH ASDIRECTED PRN PRN Reason: Keep Vein Open Last Admin: 11/22/18 09:00 Dose: 10 ml Timolol Maleate (Timoptic 0.5% Ophth Soln) 0 ml EYELF DAILY [facility] Last Admin: 11/24/18 09:29 Dose: 1 drop Discontinued Medications Ceftriaxone Sodium 1 gm/ (Sodium Chloride) 50 mls @ 100 mls/hr IV ONETIME ONE Stop: 11/22/18 10:21 Last Admin: 11/22/18 10:06 Dose: 100 mls/hr Sodium Chloride (Normal Saline) 75 mls @ 3 mls/sec IV ASDIRECTED [facility] Last Admin: 11/22/18 10:27 Dose: 3 mls/sec Sodium Chloride (Normal Saline) 1,000 mls @ 1,000 mls/hr IV ASDIRECTED [facility] Last Admin: 11/22/18 11:02 Dose: 1,000 mls/hr Ceftriaxone Sodium 1 gm/ (Sodium Chloride) 50 mls @ 100 mls/hr IV Q24H [facility] Last Admin: 11/24/18 11:32 Dose: 100 mls/hr Sodium Chloride (Normal Saline) 1,000 mls @ 125 mls/hr IV ASDIRECTED [facility] Last Admin: 11/23/18 04:09 Dose: 125 mls/hr Iopamidol (Isovue-300 (61%)) 100 ml IV . DIRECTED [facility] Last Admin: 11/22/18 10:27 Dose: 100 ml Pneumococcal Polyvalent Vaccine (Pneumovax 23) 0.5 ml IM .ONCE ONE Stop: 11/24/18 09:01 Sodium Chloride (Saline Flush) 10 ml FLUSH ONETIME ONE Stop: 11/22/18 10:01 Last Admin: 11/22/18 10:27 Dose: 10 ml - Exam Quality Assessment: No: Supplemental Oxygen General: Alert, Oriented, Cooperative, No Acute Distress Lungs: Clear to Auscultation, Normal Respiratory Effort Cardiovascular: Regular Rate, Regular Rhythm GI/Abdominal Exam: Soft, No Distention Extremities: No Pedal Edema Psy/Mental Status: Alert, Normal Affect - Problem List & Annotations (1) Acute cystitis without hematuria SNOMED Code(s): 22660715 Code(s): N30.00 - ACUTE CYSTITIS WITHOUT HEMATURIA Status: Acute Current Visit: Yes (2) Acute bronchitis SNOMED Code(s): 89805444 Code(s): J20.9 - ACUTE BRONCHITIS, UNSPECIFIED Status: Acute Current Visit: Yes Qualifiers: Bronchitis organism: unspecified organism Qualified Code(s): J20.9 - Acute bronchitis, unspecified (3) Acute respiratory failure with hypoxia SNOMED Code(s): 57084333, 917696971 Code(s): J96.01 - ACUTE RESPIRATORY FAILURE WITH HYPOXIA Status: Acute Current Visit: Yes (4) Sepsis SNOMED Code(s): 12884368 Code(s): A41.9 - SEPSIS, UNSPECIFIED ORGANISM Status: Acute Current Visit : Yes Qualifiers: Sepsis type: sepsis due to unspecified organism Sepsis acute organ dysfunction status: with acute organ dysfunction Severe sepsis acute organ dysfunction type: acute respiratory failure Acute respiratory failure type: with hypoxia Severe sepsis shock status: without septic shock Qualified Code (s): A41.9 - Sepsis, unspecified organism; R65.20 - Severe sepsis without septic shock; J96.01 - Acute respiratory failure with hypoxia (5) Cerebrovascular disease SNOMED Code(s): 87852652 Code(s): I67.9 - CEREBROVASCULAR DISEASE, UNSPECIFIED Status: Chronic Current Visit: Yes (6) Type 2 diabetes mellitus SNOMED Code(s): 32330770 Code(s): E11.9 - TYPE 2 DIABETES MELLITUS WITHOUT COMPLICATIONS Status: Chronic Current Visit: Yes Qualifiers: Diabetes mellitus fpc insulin use: with fpc use Diabetes mellitus complication status: with other specified complication Qualified Code (s): E11.69 - Type 2 diabetes mellitus with other specified complication; Z79.4 - group home (current) use of insulin - Problem List Review Problem List Initiated/Reviewed/Updated: Yes - My Orders Last 24 Hours: My Active Orders 11/23/18 11:44 PT Evaluation and Treatment [CONS] Routine 11/24/18 11:30 GLUCOSE POC LAB TO COLLECT [POC] QIDACANDBED 11/24/18 11:52 DC Sam Catheter [Urinary Catheter Removal] [RC] Per Unit Routine 11/24/18 16:30 GLUCOSE POC LAB TO COLLECT [POC] QIDACANDBED 11/24/18 21:00 GLUCOSE POC LAB TO COLLECT [POC] QIDACANDBED 11/25/18 09:00 Cefdinir [Omnicef] 300 mg PO BID - Plan Plan:: ASSESSMENT AND PLAN - Acute cystitis without hematuria - sepsis has resolved. Urine culture grew out a Shigella species. -Ceftriaxone today, transition to cefdinir tomorrow -Saline lock IV -Follow-up culture Acute bronchitis - complicated by acute respiratory failure with hypoxia. Still hypoxic but clinically looks much better today. -Ceftriaxone and azithromycin today, transition to all oral medications tomorrow -Supplement oxygen as needed Cerebrovascular disease - recent significant event with right-sided hemiplegia, dysarthria and mild dysphasia. She is currently at the long-term rehabbing from her stroke. -Continue medical management -Physical therapy Type 2 diabetes mellitus - she is insulin-dependent. Blood sugars acceptable at this time. -Continue long-acting insulin and sliding-scale insulin Maintenance issues - - DVT prophylaxis - mechanical along with dual antiplatelet therapy - GI prophylaxis - twice daily H2 kailey - Nutrition - diabetic diet - Sam catheter - placed in the emergency room, removed today Disposition - I would anticipate discharge back to the long-term after the hospital stay Primary care physician - Dr. Mirta Gamez M.D.
[2018-11-24] MEDS: atorvaSTATin 20 MG Tab PO SCH (21:45)
--- NOTE | 2018-11-24 23:55 | CRLCT ---
Final Report: INDICATION: Hypoxia; tachycardia; cough. COMPARISON: Chest radiograph November 22, 2018. TECHNIQUE: CT chest with intravenous contrast; coronal and sagittal reformats. Findings: Bolus tracking is not quite optimal to rule out subtle pulmonary thromboembolism. No obvious gross pulmonary thromboemboli in the major pulmonary arteries. No evidence of aortic aneurysm or dissection. Atelectatic changes right lung base. Patchy area of infiltrate in the right upper lobe; difficult to visualize on the chest radiograph from the same date. 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 Normal size cardiac silhouette without any evidence of pericardial effusion. Limited CT through the upper abdomen is unremarkable. IMPRESSION: 1. Suboptimal study to rule out subtle pulmonary thromboemboli; no gross pulmonary thromboemboli. 2. No evidence of aortic aneurysm or dissection. 3. Patchy areas of infiltrates right upper lobe. 4. Atelectatic changes right lower lobe. 5. 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 Please note that all CT scans at this facility use dose modulation, iterative reconstruction, and/or weight-based dosing when appropriate to reduce radiation dose to as low as reasonably achievable. Dictated by Nahun Jha MD @ Nov 22 2018 11:27AM (Electronic Signature) MTDD
[2018-11-25] MEDS: Dorzolamide 2% Ophth Soln 10 ML Bottle EYELF SCH (08:57)
[2018-11-25] MEDS: Escitalopram 10 MG Tab PO SCH (08:58)
[2018-11-25] MEDS: AMANTADINE PO SCH (08:58)
[2018-11-25] MEDS: Brimonidine 0.2% Ophth Soln 5 ML Bottle EYELF SCH (08:58)
[2018-11-25] MEDS: Cefdinir 300 MG Cap PO SCH ×2 (08:58→20:17)
[2018-11-25] MEDS: Azithromycin 250 MG Tab PO SCH (08:59)
[2018-11-25] MEDS: Clopidogrel 75 MG Tab PO SCH (08:59)
[2018-11-25] MEDS: Timolol Maleate 0.5% Ophth Soln 5 ML Bottle EYELF SCH (08:59)
[2018-11-25] MEDS: Cyanocobalamin (Vitamin B12) 1,000 MCG Tab PO SCH (08:59)
[2018-11-25] MEDS: Famotidine 20 MG Tab PO SCH ×2 (09:00→20:17)
[2018-11-25] MEDS: Aspirin 325 MG Tab.EC PO SCH (09:00)
[2018-11-25] MEDS: Docusate Sodium 100 MG Cap PO SCH (09:00)
[2018-11-25] MEDS: Metoprolol Tartrate 50 MG Tab PO SCH ×2 (09:01→20:17)
[2018-11-25] MEDS: Insulin Glargine,Human Rec. Analog 100 Units/ML 3 ML Pen SUBCUT SCH (09:03)
[2018-11-25] MEDS: Insulin Lispro 100 Unit/ML 3 ML KwikPen SUBCUT SCH ×4 (09:03→21:32)
--- NOTE | 2018-11-25 12:03 | PCM.PN ---
- General Info Date of Service: 11/25/18 Subjective Update: No acute events overnight. Patient does not report cough or shortness of breath. She reports that she is doing well. No abdominal pain or nausea. Remains very weak and requires heavy assist of 2 to get around. She is no longer requiring supplemental oxygen. Functional Status: Reports: Pain Controlled, Tolerating Diet - Review of Systems General: Reports: Weakness Pulmonary: Denies: Shortness of Breath - Patient Data Vitals - Most Recent: Last Vital Signs Temp 35.4 C 11/25/18 07:26 Pulse 75 11/25/18 09:01 Resp 20 11/25/18 07:26 BP 143/74 H 11/25/18 09:01 Pulse Ox 90 L 11/25/18 07:26 Weight - Most Recent: 94.801 kg I&O - Last 24 Hours: Intake & Output 11/24/18 11/25/18 11/25/18 22:59 06:59 14:59 Intake Total 480 240 Balance 480 240 Med Orders - Current: Current Medications Acetaminophen (Tylenol) 650 mg PO Q4H PRN PRN Reason: Pain (Mild 1-3)/fever Last Admin: 11/22/18 12:36 Dose: 650 mg Albuterol (Proventil Neb Soln) 2.5 mg NEB Q4H PRN PRN Reason: Shortness Of Breath/wheezing Last Admin: 11/23/18 21:14 Dose: 2.5 mg Amantadine HCl (Symmetrel 50 Mg/5 Ml) 50 mg PO DAILY [facility] Last Admin: 11/25/18 08:58 Dose: 50 mg Aspirin (Ecotrin) 325 mg PO DAILY [facility] Last Admin: 11/25/18 09:00 Dose: 325 mg Atorvastatin Calcium (Lipitor) 40 mg PO BEDTIME [facility] Last Admin: 11/24/18 21:45 Dose: 40 mg Azithromycin (Zithromax) 500 mg PO DAILY [facility] Last Admin: 11/25/18 08:59 Dose: 500 mg Benzonatate (Tessalon Perles) 100 mg PO TID PRN PRN Reason: Cough Brimonidine Tartrate (Alphagan 0.2% Ophth Soln) 0 ml EYELF DAILY [facility] Last Admin: 11/25/18 08:58 Dose: 1 drop Cefdinir (Omnicef) 300 mg PO BID [facility] Last Admin: 11/25/18 08:58 Dose: 300 mg Clopidogrel Bisulfate (Plavix) 75 mg PO DAILY [facility] Last Admin: 11/25/18 08:59 Dose: 75 mg Cyanocobalamin (Vitamin B12) 1,000 mcg PO DAILY [facility] Last Admin: 11/25/18 08:59 Dose: 1,000 mcg Docusate Sodium (Colace) 100 mg PO DAILY [facility] Last Admin: 11/25/18 09:00 Dose: 100 mg Dorzolamide HCl (Trusopt 2% Ophth Soln) 0 ml EYELF DAILY [facility] Last Admin: 11/25/18 08:57 Dose: 1 drop Escitalopram Oxalate (Lexapro) 10 mg PO DAILY [facility] Last Admin: 11/25/18 08:58 Dose: 10 mg Famotidine (Pepcid) 20 mg PO BID [facility] Last Admin: 11/25/18 09:00 Dose: 20 mg Guaifenesin/Codeine Phosphate (Robitussin Ac) 10 ml PO Q4H PRN PRN Reason: Cough Last Admin: 11/23/18 07:20 Dose: 10 ml Insulin Glargine (Lantus Solostar) 25 units SUBCUT DAILY [facility] Last Admin: 11/25/18 09:03 Dose: 25 units Insulin Human Lispro (Humalog) 0 unit SUBCUT QIDACANDBED [facility]; Protocol Last Admin: 11/25/18 09:03 Dose: 2 units Lorazepam (Ativan) 0.5 mg IVPUSH Q4H PRN PRN Reason: Nausea/Vomiting Magnesium Hydroxide (Milk Of Magnesia) 30 ml PO Q12H PRN PRN Reason: Constipation Metoprolol Tartrate (Lopressor) 50 mg PO BID [facility] Last Admin: 11/25/18 09:01 Dose: 50 mg Ondansetron HCl (Zofran Odt) 4 mg PO Q6H PRN PRN Reason: Nausea able to take PO Ondansetron HCl (Zofran) 4 mg IV Q6H PRN PRN Reason: Nausea/Vomiting Senna/Docusate Sodium (Senna Plus) 1 tab PO BID PRN PRN Reason: Constipation Sodium Chloride (Saline Flush) 10 ml FLUSH ASDIRECTED PRN PRN Reason: Keep Vein Open Last Admin: 11/22/18 09:00 Dose: 10 ml Timolol Maleate (Timoptic 0.5% Ophth Soln) 0 ml EYELF DAILY [facility] Last Admin: 11/25/18 08:59 Dose: 1 drop Discontinued Medications Ceftriaxone Sodium 1 gm/ (Sodium Chloride) 50 mls @ 100 mls/hr IV ONETIME ONE Stop: 11/22/18 10:21 Last Admin: 11/22/18 10:06 Dose: 100 mls/hr Sodium Chloride (Normal Saline) 75 mls @ 3 mls/sec IV ASDIRECTED [facility] Last Admin: 11/22/18 10:27 Dose: 3 mls/sec Sodium Chloride (Normal Saline) 1,000 mls @ 1,000 mls/hr IV ASDIRECTED [facility] Last Admin: 11/22/18 11:02 Dose: 1,000 mls/hr Ceftriaxone Sodium 1 gm/ (Sodium Chloride) 50 mls @ 100 mls/hr IV Q24H [facility] Last Admin: 11/24/18 11:32 Dose: 100 mls/hr Sodium Chloride (Normal Saline) 1,000 mls @ 125 mls/hr IV ASDIRECTED [facility] Last Admin: 11/23/18 04:09 Dose: 125 mls/hr Iopamidol (Isovue-300 (61%)) 100 ml IV . DIRECTED [facility] Last Admin: 11/22/18 10:27 Dose: 100 ml Pneumococcal Polyvalent Vaccine (Pneumovax 23) 0.5 ml IM .ONCE ONE Stop: 11/24/18 09:01 Last Admin: 11/24/18 15:38 Dose: 0.5 ml Sodium Chloride (Saline Flush) 10 ml FLUSH ONETIME ONE Stop: 11/22/18 10:01 Last Admin: 11/22/18 10:27 Dose: 10 ml - Exam Quality Assessment: No: Supplemental Oxygen General: Alert, Oriented, Cooperative, No Acute Distress Lungs: Normal Respiratory Effort Cardiovascular: Regular Rate, Regular Rhythm GI/Abdominal Exam: Soft, No Distention Extremities: No Pedal Edema Psy/Mental Status: Alert, Normal Affect - Problem List & Annotations (1) Acute cystitis without hematuria SNOMED Code(s): 38377502 Code(s): N30.00 - ACUTE CYSTITIS WITHOUT HEMATURIA Status: Acute Current Visit: Yes (2) Acute bronchitis SNOMED Code(s): 37814343 Code(s): J20.9 - ACUTE BRONCHITIS, UNSPECIFIED Status: Acute Current Visit: Yes Qualifiers: Bronchitis organism: unspecified organism Qualified Code(s): J20.9 - Acute bronchitis, unspecified (3) Acute respiratory failure with hypoxia SNOMED Code(s): 81242613, 804804652 Code(s): J96.01 - ACUTE RESPIRATORY FAILURE WITH HYPOXIA Status: Acute Current Visit: Yes (4) Sepsis SNOMED Code(s): 02465337 Code(s): A41.9 - SEPSIS, UNSPECIFIED ORGANISM Status: Acute Current Visit : Yes Qualifiers: Sepsis type: sepsis due to unspecified organism Sepsis acute organ dysfunction status: with acute organ dysfunction Severe sepsis acute organ dysfunction type: acute respiratory failure Acute respiratory failure type: with hypoxia Severe sepsis shock status: without septic shock Qualified Code (s): A41.9 - Sepsis, unspecified organism; R65.20 - Severe sepsis without septic shock; J96.01 - Acute respiratory failure with hypoxia (5) Cerebrovascular disease SNOMED Code(s): 52091801 Code(s): I67.9 - CEREBROVASCULAR DISEASE, UNSPECIFIED Status: Chronic Current Visit: Yes (6) Type 2 diabetes mellitus SNOMED Code(s): 06780013 Code(s): E11.9 - TYPE 2 DIABETES MELLITUS WITHOUT COMPLICATIONS Status: Chronic Current Visit: Yes Qualifiers: Diabetes mellitus international recruiter insulin use: with longterm use Diabetes mellitus complication status: with other specified complication Qualified Code (s): E11.69 - Type 2 diabetes mellitus with other specified complication; Z79.4 - [facility] (current) use of insulin - Problem List Review Problem List Initiated/Reviewed/Updated: Yes - My Orders Last 24 Hours: My Active Orders 11/25/18 09:00 Cefdinir [Omnicef] 300 mg PO BID 11/25/18 16:30 GLUCOSE POC LAB TO COLLECT [POC] QIDACANDBED 11/25/18 21:00 GLUCOSE POC LAB TO COLLECT [POC] QIDACANDBED - Plan Plan:: ASSESSMENT AND PLAN - Acute cystitis without hematuria - sepsis has resolved. Urine culture grew out a Shigella species. -Continue cefdinir -Saline lock IV -Follow-up culture Acute bronchitis - complicated by acute respiratory failure with hypoxia. Clinically doing well and no longer hypoxic. -Continue azithromycin, treatment will be complete after dose tomorrow -Continue cefdinir for total of 7 days -Supplement oxygen as needed Cerebrovascular disease - recent significant event with right-sided hemiplegia, dysarthria and mild dysphasia. She is currently at the shelter re[facility] her stroke. -Continue medical management -Physical therapy Type 2 diabetes mellitus - she is insulin-dependent. Blood sugars acceptable at this time. -Continue long-acting insulin and sliding-scale insulin Maintenance issues - - DVT prophylaxis - mechanical along with dual antiplatelet therapy - GI prophylaxis - twice daily H2 kailey - Nutrition - diabetic diet - Sam catheter - removed 11/24 Disposition - I would anticipate discharge back to the shelter after the hospital stay, likely tomorrow Primary care physician - Dr. Mirta Gamez M.D.
--- NOTE | 2018-11-25 13:03 | PCM.DCSUM1 ---
Discharge Summary - Hospital Course Brief History: 63-year-old female with history of hypertension, insulin- dependent diabetes and recent stroke with significant right-sided deficits who presented with fever and lethargy. She was admitted for management of acute bronchitis with sepsis and respiratory failure as well as a urinary tract infection. Diagnosis: Stroke: No - Discharge Data Discharge Date: 11/26/18 Discharge Disposition: DC/Tfer to SNF 03 Condition: Good - Discharge Diagnosis/Problem(s) (1) Acute bronchitis SNOMED Code(s): 06095727 ICD Code: J20.9 - ACUTE BRONCHITIS, UNSPECIFIED Status: Acute Current Visit: Yes Qualifiers: Bronchitis organism: unspecified organism Qualified Code(s): J20.9 - Acute bronchitis, unspecified (2) Acute respiratory failure with hypoxia SNOMED Code(s): 41868671, 649950676 ICD Code: J96.01 - ACUTE RESPIRATORY FAILURE WITH HYPOXIA Status: Acute Current Visit: Yes (3) Sepsis SNOMED Code(s): 29673066 ICD Code: A41.9 - SEPSIS, UNSPECIFIED ORGANISM Status: Acute Current Visit: Yes Qualifiers: Sepsis type: sepsis due to unspecified organism Sepsis acute organ dysfunction status: with acute organ dysfunction Severe sepsis acute organ dysfunction type: acute respiratory failure Acute respiratory failure type: with hypoxia Severe sepsis shock status: without septic shock Qualified Code (s): A41.9 - Sepsis, unspecified organism; R65.20 - Severe sepsis without septic shock; J96.01 - Acute respiratory failure with hypoxia (4) Acute cystitis without hematuria SNOMED Code(s): 19689710 ICD Code: N30.00 - ACUTE CYSTITIS WITHOUT HEMATURIA Status: Acute Current Visit: Yes (5) Cerebrovascular disease SNOMED Code(s): 10625815 ICD Code: I67.9 - CEREBROVASCULAR DISEASE, UNSPECIFIED Status: Chronic Current Visit: Yes (6) Type 2 diabetes mellitus SNOMED Code(s): 64083631 ICD Code: E11.9 - TYPE 2 DIABETES MELLITUS WITHOUT COMPLICATIONS Status: Chronic Current Visit: Yes Qualifiers: Diabetes mellitus care home insulin use: with care home use Diabetes mellitus complication status: with other specified complication Qualified Code (s): E11.69 - Type 2 diabetes mellitus with other specified complication; Z79.4 - [facility] (current) use of insulin - Patient Summary/Data Consults: Consultations 11/23/18 11:44 PT Evaluation and Treatment [CONS] Routine Please Evaluate and Treat. PT Reason for Consult: Strengthening This query below is only for informational purposes and is not editable. Admission Diagnosis/Problem: Acute cystitis without hematuria Hospital Course: Tiffany was sent to the emergency room from a local [facility] after she was noted to be lethargic, tachycardic, hypoxic and febrile. Workup in the emergency room revealed evidence for sepsis as well as probable bronchitis as well has a urinary tract infection. She was requiring supplemental oxygen. Cultures were obtained, she received IV fluid challenges as well as broad- spectrum antibiotics and was admitted to the hospital for further management. Overnight following admission we did see improvement in her condition but she did work quire ongoing supplemental oxygen. Cough was a problem with a fair amount of sputum though this did improve with mucolytics. She did not have any fevers. Her sepsis resolved fairly quickly. Heart rate calm down into the normal range overnight following admission. On the second day of hospitalization the patient was doing well. She will intermittent be required oxygen but was for the most part off supplemental oxygen. Her urine culture grew out a Shigella species which was sensitive to the current third generation cephalosporins. At this point I believe she was safe for discharge back to the [facility] but unfortunately she did not hold her [facility] bed. She remained hospitalized over the weekend until a [facility] bed could be found for additional subacute rehabilitation. She has been transitioned to oral medications for her urinary tract infection and bronchitis. She has been off supplemental oxygen. She has not had any fevers. She continues to be a fairly heavy assist of 2 with transfers but this was the case prior to her illness and being admitted to the hospital. She will need to have additional days of antibiotic therapy after hospital discharge with the cefdinir but she has completed adequate treatment with the azithromycin. She will return to the [facility] for subacute rehabilitation. Diabetes has been fairly well- controlled. No other medication changes were made. - Patient Instructions Diet: Diabetic Diet (1800 ADA) Activity: As Tolerated Showering/Bathing: May Shower Notify Provider of: Fever, Increased Pain, Nausea and/or Vomiting Other/Special Instructions: 1. You were in the hospital for management of acute bronchitis complicated by sepsis and acute respiratory failure with hypoxia. Also found at the time of admission was a urinary tract infection. Your condition has been improving with antibiotic therapy and additional supportive care. You have completed adequate antibiotic therapy with azithromycin at the time of discharge. I do recommend additional antibiotic therapy with cefdinir ( Omnicef). You should take 300 mg twice daily for 5 more doses. Your next dose is due Monday night. 2. Continue your usual home medications as previously prescribed. 3. Continue Physical and Occupational therapy to help recover from her stroke. 4. Code status - full code. 5. Please check blood sugars 4 times daily with meals and at bedtime. Please administer sliding scale along with blood sugar checks if indicated. 6. Seek medical attention if you fever greater than 101, severe shortness of breath or if you have persistent vomiting or severe diarrhea. - Discharge Plan *PRESCRIPTION DRUG MONITORING PROGRAM REVIEWED*: Not Applicable *COPY OF PRESCRIPTION DRUG MONITORING REPORT IN PATIENT [place]: Not Applicable Prescriptions/Med Rec: Cefdinir [Omnicef] 300 mg PO BID #5 cap Home Medications: Home Meds Albuterol Sulfate [Albuterol Sulfate Hfa] 2 puff IH Q6H 11/22/18 [History] Amantadine [Symmetrel 50 MG/5 ML] 5 ml PO DAILY 11/22/18 [History] Ascorbate Calcium [Vitamin C] 1,000 mg PO DAILY 11/22/18 [History] Aspirin 325 mg PO DAILY 11/22/18 [History] Brimonidine Tartrate/Timolol [Combigan 0.2%-0.5% Eye Drops] 1 drop EYELF BID 05/12 [History] Cholecalciferol (Vitamin D3) [Vitamin D3] 1,000 unit PO DAILY 11/22/18 [History] Clopidogrel Bisulfate [Clopidogrel] 75 mg PO DAILY 11/22/18 [History] Cyanocobalamin (Vitamin B-12) [Vitamin B-12] 1,000 mcg PO DAILY 11/22/18 [ History] Docusate Sodium [Stool Softener] 100 mg PO DAILY 11/22/18 [History] Dorzolamide HCl/Pf [Dorzolamide 2% Eye Drop] 1 drop EYELF TID 11/22/18 [History] Escitalopram [Lexapro] 10 mg PO DAILY 11/22/18 [History] Famotidine 20 mg PO BID 11/22/18 [History] Insulin Aspart [NovoLOG] 0 unit SQ WITHMEALSANDBED 11/22/18 [History] Insulin Glarg,Human.Rec.Analog [Lantus Solostar] 25 unit SUBCUT PCLUNCH [History] Lisinopril 10 mg PO DAILY 11/22/18 [History] Metoprolol Tartrate [Lopressor] 50 mg PO BID 11/22/18 [History] atorvaSTATin [Lipitor] 40 mg PO BEDTIME 11/22/18 [History] Cefdinir [Omnicef] 300 mg PO BID #5 cap 11/25/18 [Rx] Docusate Sodium 100 mg PO BID PRN 11/25/18 [History] metFORMIN [Glucophage] 1,000 mg PO BIDMEALS 11/25/18 [History] Oxygen Therapy Mode: Room Air Referrals: Eamon Kirby MD [Physician] - (as needed ) - Discharge Summary/Plan Comment DC Time >30 min.: Yes (40 - [facility] discharge) - Patient Data Vitals - Most Recent: Last Vital Signs Temp 36.2 C 11/25/18 12:11 Pulse 61 11/25/18 12:11 Resp 20 11/25/18 12:11 BP 131/73 11/25/18 12:11 Pulse Ox 92 L 11/25/18 12:11 Weight - Most Recent: 94.801 kg I&O - Last 24 hours: Intake & Output 11/24/18 11/25/18 11/25/18 22:59 06:59 14:59 Intake Total 480 240 Balance 480 240 Med Orders - Current: Current Medications Acetaminophen (Tylenol) 650 mg PO Q4H PRN PRN Reason: Pain (Mild 1-3)/fever Last Admin: 11/22/18 12:36 Dose: 650 mg Albuterol (Proventil Neb Soln) 2.5 mg NEB Q4H PRN PRN Reason: Shortness Of Breath/wheezing Last Admin: 11/23/18 21:14 Dose: 2.5 mg Amantadine HCl (Symmetrel 50 Mg/5 Ml) 50 mg PO DAILY [facility] Last Admin: 11/25/18 08:58 Dose: 50 mg Aspirin (Ecotrin) 325 mg PO DAILY [facility] Last Admin: 11/25/18 09:00 Dose: 325 mg Atorvastatin Calcium (Lipitor) 40 mg PO BEDTIME [facility] Last Admin: 11/24/18 21:45 Dose: 40 mg Azithromycin (Zithromax) 500 mg PO DAILY [facility] Last Admin: 11/25/18 08:59 Dose: 500 mg Benzonatate (Tessalon Perles) 100 mg PO TID PRN PRN Reason: Cough Brimonidine Tartrate (Alphagan 0.2% Ophth Soln) 0 ml EYELF DAILY [facility] Last Admin: 11/25/18 08:58 Dose: 1 drop Cefdinir (Omnicef) 300 mg PO BID [facility] Last Admin: 11/25/18 08:58 Dose: 300 mg Clopidogrel Bisulfate (Plavix) 75 mg PO DAILY [facility] Last Admin: 11/25/18 08:59 Dose: 75 mg Cyanocobalamin (Vitamin B12) 1,000 mcg PO DAILY [facility] Last Admin: 11/25/18 08:59 Dose: 1,000 mcg Docusate Sodium (Colace) 100 mg PO DAILY [facility] Last Admin: 11/25/18 09:00 Dose: 100 mg Dorzolamide HCl (Trusopt 2% Ophth Soln) 0 ml EYELF DAILY [facility] Last Admin: 11/25/18 08:57 Dose: 1 drop Escitalopram Oxalate (Lexapro) 10 mg PO DAILY [facility] Last Admin: 11/25/18 08:58 Dose: 10 mg Famotidine (Pepcid) 20 mg PO BID [facility] Last Admin: 11/25/18 09:00 Dose: 20 mg Guaifenesin/Codeine Phosphate (Robitussin Ac) 10 ml PO Q4H PRN PRN Reason: Cough Last Admin: 11/23/18 07:20 Dose: 10 ml Insulin Glargine (Lantus Solostar) 25 units SUBCUT DAILY [facility] Last Admin: 11/25/18 09:03 Dose: 25 units Insulin Human Lispro (Humalog) 0 unit SUBCUT QIDACANDBED [facility]; Protocol Last Admin: 11/25/18 12:49 Dose: 8 units Lorazepam (Ativan) 0.5 mg IVPUSH Q4H PRN PRN Reason: Nausea/Vomiting Magnesium Hydroxide (Milk Of Magnesia) 30 ml PO Q12H PRN PRN Reason: Constipation Metoprolol Tartrate (Lopressor) 50 mg PO BID [facility] Last Admin: 11/25/18 09:01 Dose: 50 mg Ondansetron HCl (Zofran Odt) 4 mg PO Q6H PRN PRN Reason: Nausea able to take PO Ondansetron HCl (Zofran) 4 mg IV Q6H PRN PRN Reason: Nausea/Vomiting Senna/Docusate Sodium (Senna Plus) 1 tab PO BID PRN PRN Reason: Constipation Sodium Chloride (Saline Flush) 10 ml FLUSH ASDIRECTED PRN PRN Reason: Keep Vein Open Last Admin: 11/22/18 09:00 Dose: 10 ml Timolol Maleate (Timoptic 0.5% Ophth Soln) 0 ml EYELF DAILY [facility] Last Admin: 11/25/18 08:59 Dose: 1 drop Discontinued Medications Ceftriaxone Sodium 1 gm/ (Sodium Chloride) 50 mls @ 100 mls/hr IV ONETIME ONE Stop: 11/22/18 10:21 Last Admin: 11/22/18 10:06 Dose: 100 mls/hr Sodium Chloride (Normal Saline) 75 mls @ 3 mls/sec IV ASDIRECTED [facility] Last Admin: 11/22/18 10:27 Dose: 3 mls/sec Sodium Chloride (Normal Saline) 1,000 mls @ 1,000 mls/hr IV ASDIRECTED [facility] Last Admin: 11/22/18 11:02 Dose: 1,000 mls/hr Ceftriaxone Sodium 1 gm/ (Sodium Chloride) 50 mls @ 100 mls/hr IV Q24H [facility] Last Admin: 11/24/18 11:32 Dose: 100 mls/hr Sodium Chloride (Normal Saline) 1,000 mls @ 125 mls/hr IV ASDIRECTED [facility] Last Admin: 11/23/18 04:09 Dose: 125 mls/hr Iopamidol (Isovue-300 (61%)) 100 ml IV . DIRECTED [facility] Last Admin: 11/22/18 10:27 Dose: 100 ml Pneumococcal Polyvalent Vaccine (Pneumovax 23) 0.5 ml IM .ONCE ONE Stop: 11/24/18 09:01 Last Admin: 11/24/18 15:38 Dose: 0.5 ml Sodium Chloride (Saline Flush) 10 ml FLUSH ONETIME ONE Stop: 11/22/18 10:01 Last Admin: 11/22/18 10:27 Dose: 10 ml - Exam Quality Assessment: Denies: Supplemental Oxygen General: Reports: Alert, Oriented, Cooperative, No Acute Distress Lungs: Reports: Clear to Auscultation, Normal Respiratory Effort Cardiovascular: Reports: Regular Rate, Regular Rhythm GI/Abdominal Exam: Soft, No Distention Extremities: No Pedal Edema Psy/Mental Status: Reports: Alert, Normal Affect
[2018-11-25] MEDS: atorvaSTATin 20 MG Tab PO SCH (20:16)
[2018-11-26] MEDS: Brimonidine 0.2% Ophth Soln 5 ML Bottle EYELF SCH (08:46)
[2018-11-26] MEDS: Docusate Sodium 100 MG Cap PO SCH (08:46)
[2018-11-26] MEDS: Aspirin 325 MG Tab.EC PO SCH (08:47)
[2018-11-26] MEDS: Escitalopram 10 MG Tab PO SCH (08:47)
[2018-11-26] MEDS: Famotidine 20 MG Tab PO SCH (08:48)
[2018-11-26] MEDS: Cefdinir 300 MG Cap PO SCH (08:48)
[2018-11-26] MEDS: Clopidogrel 75 MG Tab PO SCH (08:48)
[2018-11-26] MEDS: AMANTADINE PO SCH (08:49)
[2018-11-26] MEDS: Timolol Maleate 0.5% Ophth Soln 5 ML Bottle EYELF SCH (08:50)
[2018-11-26] MEDS: Dorzolamide 2% Ophth Soln 10 ML Bottle EYELF SCH (08:50)
[2018-11-26] MEDS: Cyanocobalamin (Vitamin B12) 1,000 MCG Tab PO SCH (08:51)
[2018-11-26] MEDS: Metoprolol Tartrate 50 MG Tab PO SCH (08:51)
[2018-11-26] MEDS: Azithromycin 250 MG Tab PO SCH (08:51)
[2018-11-26] MEDS: Insulin Lispro 100 Unit/ML 3 ML KwikPen SUBCUT SCH ×2 (08:52→12:00)
[2018-11-26] MEDS: Insulin Glargine,Human Rec. Analog 100 Units/ML 3 ML Pen SUBCUT SCH (08:53)
== END 2018-11-26 14:20 | DRG 720 ==
LOC: JP.ED 08:21 → JP.ICU 12:01 → JP.MS 11-23 12:30
PROVIDERS: ADMIT Internal Medicine; ATTEND Internal Medicine
DX: A41.9 Sepsis, unspecified organism (principal); N30.00 Acute cystitis without hematuria; J20.9 Acute bronchitis, unspecified; J96.01 Acute respiratory failure with hypoxia; Z87.891 Personal history of nicotine dependence; I69.320 Aphasia following cerebral infarction; I69.392 Facial weakness following cerebral infarction; I69.351 Hemiplegia and hemiparesis following cerebral infarction affecting right dominant side; H54.7 Unspecified visual loss; I10 Essential (primary) hypertension; I25.2 Old myocardial infarction; E11.9 Type 2 diabetes mellitus without complications; Z79.02 Long term (current) use of antithrombotics/antiplatelets; Z79.82 Long term (current) use of aspirin; Z79.4 Long term (current) use of insulin; Z79.899 Other long term (current) drug therapy
CPT/HCPCS: 36415; 71045; 71260; 80048; 80053; 81001; 82962; 83605; 84484; 85025; 85027; 87086; 87088; 87186; 90732; 93005; 94640; 96361; 96365; 97110-GP; 97112-GP; 97140-GP; 97162-GP; 97530-GP; 99285-25; A9270-GY; J0696; J1815; J1815-GY; J7030; J7050; Q9967

== ENCOUNTER 2025-04-06 07:17 | Emergency (ER) | payer MEDICARE, MEDICAID ==
[2025-04-06] MEDS: Lidocaine 1% with EPINEPHrine 1:100,000 50 ML MDV SUBCUT STA (07:35)
[2025-04-06] MEDS: Diphtheria,Pertussis(Acell),Tetanus Vaccine 0.5 ML Syringe IM ONE (07:59)
== END 2025-04-06 08:29 | disposition home or self-care (01) ==
LOC: JP.ED 07:17
DX: S01.01XA Laceration without foreign body of scalp, initial encounter (principal); S01.03XA Puncture wound without foreign body of scalp, initial encounter; Z23 Encounter for immunization; I10 Essential (primary) hypertension; E11.9 Type 2 diabetes mellitus without complications; Z79.82 Long term (current) use of aspirin; Z79.4 Long term (current) use of insulin; Z79.899 Other long term (current) drug therapy; W06.XXXA Fall from bed, initial encounter
CPT/HCPCS: 12001; 90471; 90715; 99282-25; 99283